=== PATIENT | male | born 1970 | race Caucasian/White ===

== ENCOUNTER 2020-05-22 12:04 | Emergency (ER) | payer BC, OTHER ==
[2020-05-22] MEDS ORDERED: Diphtheria,Pertussis(Acell),Tetanus Vaccine 0.5 ML Syringe IM ONE (12:26)
--- NOTE | 2020-05-22 13:08 | EDM.PDOC ---
ED HPI GENERAL MEDICAL PROBLEM - General Chief Complaint: Laceration Stated Complaint: CUT INDEX LT FINGER Time Seen by Provider: 05/22/20 12:16 Source of Information: Reports: Patient - History of Present Illness INITIAL COMMENTS - FREE TEXT/NARRATIVE: History of present illness: 49-year-old male presenting with left index finger laceration on the palmar surface occurring an hour and a half prior to arrival. The patient was using a knife at work and cut his finger. Bleeding is well controlled with a bandage that the patient placed and taped on his finger. He was at work and the wound did have some dirt nearby as well as some grease which the patient did attempt to wash off prior to arrival here. Tetanus is not up-to-date. Pain is minimal and well tolerated. The patient is right-handed, wound located left index finger Review of systems: As per history of present illness and below otherwise all systems reviewed and negative. Past medical history: As per history of present illness and as reviewed below otherwise noncontributory. Denies Surgical history: As per history of present illness and as reviewed below otherwise noncontributory. Multiple orthopedic surgeries Social history: No reported history of drug abuse. Daily tobacco. Daily 1 beer Family history: As per history of present illness and as reviewed below otherwise noncontributory. Physical exam: GEN: no acute distress, well appearing HEENT: Atraumatic, normocephalic, mucous membranes moist, Neck: supple, atraumatic. Lungs: No respiratory distress. Heart: RRR Extremities: Left index finger laceration, 2 cm over the palmar surface, actively bleeding once patient's own dressing was removed. Range of motion of the index finger with no signs of tendon laceration or weakness. Distally neurovascularly intact. Neuro: Awake, alert, oriented. Neuro Exam nonfocal. Skin: warm, dry, no lesions 2 cm laceration palmar surface of the left hand Diagnostics: Therapeutics: Tetanus MDM: Impression: Plan: Definitive disposition and diagnosis as appropriate pending reevaluation and review of above. - Related Data Allergies Allergy/AdvReac Type Severity Reaction Status Date / Time No Known Allergies Allergy Verified 05/22/20 12:20 Home Meds: Home Meds lisinopriL [Lisinopril] 40 mg PO DAILY 05/22/20 [History] Past Medical History Cardiovascular History: Reports: Hypertension - Infectious Disease History Infectious Disease History: Reports: None Social & Family History - Family History Family Medical History: Noncontributory - Tobacco Use Smoking Status *Q: Current Every Day Smoker Years of Tobacco use: 15 Packs/Tins Daily: 0.5 - Caffeine Use Caffeine Use: Reports: None - Recreational Drug Use Recreational Drug Use: No ED ROS GENERAL - Review of Systems Review Of Systems: See Below (See HPI) ED EXAM, SKIN/RASH Exam: See Below (See HPI) Course - Vital Signs Text/Narrative:: Left index finger laceration, repaired by ZACH Isaac. Patient tolerated well. Wound was mildly contaminated but cleaned well. No bone exposure or limited range of motion. No tendon injury. Tetanus updated here. Last Recorded V/S: Last Vital Signs Temp 97.9 F 05/22/20 14:37 Pulse 87 05/22/20 14:37 Resp 20 05/22/20 14:37 BP 167/109 H 05/22/20 14:37 Pulse Ox 97 05/22/20 14:37 - Orders/Labs/Meds Meds: Medications Discontinued Medications Generic Name Dose Route Start Last Admin Trade Name Carlos PRN Reason Stop Dose Admin Diphtheria/Tetanus/Acell Pertussis 0.5 ml 05/22/20 12:26 05/22/20 13:35 Adacel IM 05/22/20 12:27 0.5 ml .ONCE ONE Administration Lidocaine HCl 10 ml 05/22/20 13:17 05/22/20 13:43 Xylocaine 1% INJECT 05/22/20 13:18 10 ml ONETIME ONE Administration Lidocaine HCl Confirm 05/22/20 13:24 05/22/20 13:36 Xylocaine-Mpf 1% Administered 05/22/20 13:25 Not Given Dose 10 ml .ROUTE .STK-MED ONE - Re-Assessments/Exams Free Text/Narrative Re-Assessment/Exam: 05/22/20 14:03 Patient tolerated laceration repair well. No acute distress. Stable for discharge. Departure - Departure Time of Disposition: 14:04 Disposition: Home, Self-Care 01 Clinical Impression: Finger laceration Qualifiers: Encounter type: initial encounter Finger: index finger Damage to nail status: without damage Foreign body presence: without foreign body Laterality: left Qualified Code(s): S61.211A - Laceration without foreign body of left index finger without damage to nail, initial encounter - Discharge Information Instructions: VIS, DTaP (Diphtheria, Tetanus, Pertussis) Vaccine - CDC (12/19/2019), Wound Care, Adult, Sutured Wound Care, Laceration Care, Adult, [id number], Sutures, [place], or Adhesive Wound Closure, [id number], Sutured Wound Care, [id number] Referrals: Kirit Stewart MD [Primary Care Provider] - Forms: ED Department Discharge Additional Instructions: Follow-up with your primary care physician or the emergency department for suture removal in 7 to 10 days. Return to the ER if you develop any swelling, redness, discharge from the laceration or any other concerning symptoms. Keep the wound clean and dry for 24 hours, to keep the wounds clean until sutures are removed. The following information is given to patients seen in the emergency department who are being discharged to home. This information is to outline your options for follow-up care. We provide all patients seen in our emergency department with a follow-up referral. The need for follow-up, as well as the timing and circumstances, are variable depending upon the specifics of your emergency department visit. If you don't have a primary care physician on staff, we will provide you with a referral. We always advise you to contact your personal physician following an emergency department visit to inform them of the circumstance of the visit and for follow-up with them and/or the need for any referrals to a consulting specialist. The emergency department will also refer you to a specialist when appropriate. This referral assures that you have the opportunity for follow-up care with a specialist. All of these measure are taken in an effort to provide you with optimal care, which includes your follow-up. Under all circumstances we always encourage you to contact your private physician who remains a resource for coordinating your care. When calling for follow-up care, please make the office aware that this follow-up is from your recent emergency room visit. If for any reason you are refused follow-up, please contact the [facility] Emergency Department at and asked to speak to the emergency department charge nurse. Sepsis Event Note (ED) - Evaluation Sepsis Screening Result: No Definite Risk
[2020-05-22] MEDS ORDERED: Lidocaine 1% 10 ML MDV INJECT ONE (13:17)
--- NOTE | 2020-05-22 13:58 | PCM.PRNOTE ---
ED LACERATION PROCEDURES - Laceration/Wound Repair Left Distal Digit - 2nd (Index) Lac/wound length in cm: 2.5 Appearance: Subcutaneous, Linear, Mildly Contaminated Distal NVT: Neuro & Vascular Intact, No Tendon Injury Anesthetic Type: Local Local Anesthesia - Lidocaine (Xylocaine): 1% Plain Local Anesthetic Volume: 3cc Skin Prep: Chlorhexidine (Hibiciens), Providone-Iodine (Betadine), Saline Saline irrigation (cc's): 150 Exploration/Debridement/Repair: Wound Explored, In a Bloodless Field, Explored to Base, No Foreign Material Found Closed with: Sutures Suture Size: 4-0 # of Sutures: 5 Suture Type: Silk Drain Placement: No Sterile Dressing Applied: Nurse Tetanus Status Addressed: Yes Complications: No
== END 2020-05-22 14:45 | disposition home or self-care (01) ==
LOC: MW.ED 12:04
DX: S61.211A Laceration without foreign body of left index finger without damage to nail, initial encounter (principal); I10 Essential (primary) hypertension; F17.210 Nicotine dependence, cigarettes, uncomplicated; W26.0XXA Contact with knife, initial encounter; Y99.0 Civilian activity done for income or pay
CPT/HCPCS: 12001; 90471; 90715; 99282; J2001

== ENCOUNTER 2020-05-30 11:46 | Emergency (ER) | payer OTHER | END 2020-05-30 12:00 | disposition home or self-care (01) | LOC: MW.ED 11:46 | DX: S61.211D Laceration without foreign body of left index finger without damage to nail, subsequent encounter (principal); S61.412D Laceration without foreign body of left hand, subsequent encounter; I10 Essential (primary) hypertension; F17.210 Nicotine dependence, cigarettes, uncomplicated; Z79.899 Other long term (current) drug therapy; W26.0XXD Contact with knife, subsequent encounter; Y92.89 Other specified places as the place of occurrence of the external cause; Y99.0 Civilian activity done for income or pay | CPT/HCPCS: 99281 ==

== ENCOUNTER 2021-02-25 10:46 | Day surgery (SDC) | payer OTHER ==
[~2021-02-25 10:46] MED LIST: Lidocaine 2% 5 ML SDV ONE; Midazolam 1 MG/ML 2 ML SDV ONE; Propofol 200 MG/20 ML SDV ONE; fentaNYL 100 MCG/2 ML SDV ONE
[2021-02-25] MEDS ORDERED: Lactated Ringers 1,000 ML IV SCH (11:30)
[2021-02-25] MEDS ORDERED: Albuterol 0.083% 2.5 MG/3 ML Neb Soln NEB PRN (11:54)
[2021-02-25] MEDS ORDERED: Ondansetron 4 MG/2 ML SDV IVPUSH PRN (11:54)
[2021-02-25] MEDS ORDERED: Metoclopramide 10 MG/2 ML SDV IVPUSH PRN (11:54)
--- NOTE | 2021-02-25 11:54 | PCM.PREANE ---
Preanesthetic Assessment - Anesthesia/Transfusion/Family Hx Anesthesia History: Prior Anesthesia Without Reaction Transfusion History: No Prior Transfusion(s) - Review of Systems General: No Symptoms Pulmonary: No Symptoms Cardiovascular: No Symptoms Gastrointestinal: No Symptoms Neurological: No Symptoms Other: Reports: None - Physical Assessment NPO Status Date: 02/25/21 NPO Status Time: 00:00 Vital Signs: Last Vital Signs Temp 97.0 F 02/25/21 11:00 Pulse 104 H 02/25/21 11:00 Resp 18 02/25/21 11:00 BP 150/111 H 02/25/21 11:10 Pulse Ox 96 02/25/21 11:00 Height: 6 ft 1 in Weight: 249 lb ASA Class: 3 Mental Status: Alert & Oriented x3 Airway Class: Mallampati = 2 Dentition: Reports: Normal Dentition ROM/Head Extension: Full Lungs: Clear to Auscultation, Normal Respiratory Effort Cardiovascular: Regular Rate, Regular Rhythm - Lab Values: Laboratory Last Values Lipase 119 U/L ([id number]) 02/24/21 09:55 - Allergies Allergies/Adverse Reactions: Allergies Allergy/AdvReac Type Severity Reaction Status Date / Time No Known Allergies Allergy Verified 02/25/21 07:30 - Acknowledgements Anesthesia Type Planned: General Anesthesia Pt an Appropriate Candidate for the Planned Anesthesia: Yes Alternatives and Risks of Anesthesia Discussed w Pt/Guardian: Yes Pt/Guardian Understands and Agrees with Anesthesia Plan: Yes PreAnesthesia Questionnaire HEENT History: Reports: Other (See Below) Other HEENT History: wears glasses Cardiovascular History: Reports: Hypertension Other Cardiovascular History: HTN in the past, has lost weight Respiratory History: Reports: Other (See Below) Other Respiratory History: sleep apnea in the past, states has lost weight and no longer needs CPAP Gastrointestinal History: Reports: GERD, Helicobacter Pylori Genitourinary History: Reports: None Musculoskeletal History: Reports: Fracture Other Musculoskeletal History: fx both arms, fingers & wrist Neurological History: Reports: Concussion Psychiatric History: Reports: None Endocrine/Metabolic History: Reports: Obesity/BMI 30+ Hematologic History: Reports: None Immunologic History: Reports: None Oncologic (Cancer) History: Reports: None Dermatologic History: Reports: None - Infectious Disease History Infectious Disease History: Reports: None - Past Surgical History Head Surgeries/Procedures: Reports: None HEENT Surgical History: Reports: None Cardiovascular Surgical History: Reports: None Respiratory Surgical History: Reports: None GI Surgical History: Reports: EGD Other GI Surgeries/Procedures: EGD on 02/25/21 Male Surgical History: Reports: None Endocrine Surgical History: Reports: None Neurological Surgical History: Reports: None Musculoskeletal Surgical History: Reports: Arthroscopic Knee, ORIF, Shoulder Surgery Other Musculoskeletal Surgeries/Procedures:: ORIF both arms, RTCR left shoulder, surgery for fx left ring finger, left knee arthroscopy Oncologic Surgical History: Reports: None Dermatological Surgical History: Reports: None - SUBSTANCE USE Tobacco Use Status *Q: Light Tobacco User Tobacco Use Within Last Twelve Months: Cigarettes, Snuff/Dip - HOME MEDS Home Medications: Home Meds Bismuth Ssal/Metronid/Tetracyc [Helidac Therapy Pack] 1 tab PO ASDIRECTED 02/24/21 [History] Furosemide 20 mg PO DAILY 02/24/21 [History] Omeprazole 40 mg PO DAILY 02/24/21 [History] - CURRENT (IN HOUSE) MEDS Current Meds: Current Medications Lactated Ringer's (Ringers, Lactated) 1,000 mls @ 125 mls/hr IV ASDIRECTED ALEXA Discontinued Medications Fentanyl (Fentanyl 100 Mcg/2 Ml Sdv) Confirm Administered Dose 100 mcg .ROUTE .STK-MED ONE Stop: 02/25/21 07:03 Lidocaine (Lidocaine 2% 5 Ml Sdv) Confirm Administered Dose 5 ml .ROUTE .STK-MED ONE Stop: 02/25/21 07:03 Midazolam HCl (Midazolam 1 Mg/Ml 2 Ml Sdv) Confirm Administered Dose 2 mg .ROUTE .STK-MED ONE Stop: 02/25/21 07:03 Propofol (Propofol 200 Mg/20 Ml Sdv) Confirm Administered Dose 200 mg .ROUTE .STK-MED ONE Stop: 02/25/21 07:03
--- NOTE | 2021-02-25 13:16 | PCM.POSTAN ---
POST ANESTHESIA ASSESSMENT - MENTAL STATUS Mental Status: Alert, Oriented - VITAL SIGNS Vital Signs: Last Vital Signs Temp 97.0 F 02/25/21 11:00 Pulse 86 02/25/21 13:02 Resp 19 02/25/21 13:02 BP 121/83 02/25/21 13:02 Pulse Ox 97 02/25/21 13:02 - RESPIRATORY Respiratory Status: Respiratory Rate WNL, Airway Patent, O2 Saturation Stable - CARDIOVASCULAR CV Status: Pulse Rate WNL, Blood Pressure Stable - GASTROINTESTINAL GI Status: No Symptoms - POST OP HYDRATION Hydration Status: Adequate & Stable
--- NOTE | 2021-02-25 13:16 | PCM48HPAN ---
Post Anesthesia Note - EVALUATION WITHIN 48HRS OF ANESTHETIC Vital Signs in Normal Range: Yes Patient Participated in Evaluation: Yes Respiratory Function Stable: Yes Airway Patent: Yes Cardiovascular Function Stable: Yes Hydration Status Stable: Yes Pain Control Satisfactory: Yes Nausea and Vomiting Control Satisfactory: Yes Mental Status Recovered: Yes Vital Signs: Last Vital Signs Temp 97.0 F 02/25/21 11:00 Pulse 86 02/25/21 13:02 Resp 19 02/25/21 13:02 BP 121/83 02/25/21 13:02 Pulse Ox 97 02/25/21 13:02
--- NOTE | 2021-02-25 14:07 | PCM.OPNOTE ---
- General Post-Op/Procedure Note Date of Surgery/Procedure: 02/25/21 Operative Procedure(s): EGD with biopsies Findings: Gastritis Irregular GE junction dictation number [id number] Pre Op Diagnosis: Abdominal pain, GERD Post-Op Diagnosis: Gastritis. Irregular GE junction Primary Surgeon: Rom Villalba Pathology: EGD biopsies Complications: None Condition: Good Free Text/Narrative:: Intake & Output 02/24/21 02/25/21 02/25/21 22:59 06:59 14:59 Intake Total 550 Balance 550
--- NOTE | 2021-02-25 20:49 | OR ---
SURGEON: MEGAN BARKER MD DATE OF PROCEDURE: 02/25/2021 PREOPERATIVE DIAGNOSES: 1. Abdominal pain. 2. Gastroesophageal reflux disease. 3. Loose stools. POSTOPERATIVE DIAGNOSES: 1. Gastritis. 2. Irregular gastroesophageal junction. PROCEDURE PERFORMED: Esophagogastroduodenoscopy with biopsies. EXTENT OF EGD: To second part of duodenum. LIMITATIONS: None. REASON FOR PROCEDURE: The patient is a pleasant 50-year-old gentleman who for the past four months has been having left upper abdominal pain. It has been related to spicy food. It seems to come and go at random times but is occasionally associated with eating. The patient did have a positive H pylori and is under active treatment for that. The patient also has change in bowel habits. He says he has had some urgency, has to go to the bathroom right way and some multiple loose bowel movements daily. Also, he is having some swelling and edema. I did go over with the patient again risks, goals, and alternatives to EGD. All of the patient's questions were answered. PROCEDURE IN DETAIL: Physical exam was performed. The major risks and benefits associated with the procedure were explained to the patient in detail. The patient verbalized understanding and was in agreement with the same. The patient was then connected to the appropriate monitoring devices, and IV was started. EKG, pulse oximetry, blood pressure, and capnography were monitored throughout the entire procedure. Oxygen and sedation were provided by the anesthesiologist. Sedation was began. After adequate sedation was achieved, upper endoscope was advanced under direct visualization in the upper GI tract. The anatomy of mucosa of the esophagus, GE junction, stomach, and at least the second part of duodenum were inspected. Duodenum did appear normal. Did do several biopsies of duodenum because of question of possible celiac disease. The scope was brought back to the stomach. Both retrograde and antegrade views of the stomach were done. The patient did have some mild gastritis. Did do biopsies of the antrum. Scope was brought to the GE junction. GE junction was approximately 42 cm from the incisors. The GE junction did have two salmon-colored projections about 1 cm. One did have some islands of normal cell in it. Did do four- quadrant biopsies throughout the GE junction. Scope was brought back to the stomach. Stomach was deinsufflated. Scope was brought up to the GE junction. There was good hemostasis. Scope was brought through the esophagus. Esophagus did appear normal. Scope was completely removed, and the procedure was terminated. ENDOSCOPIC DIAGNOSES: 1. Gastritis. 2. Irregular gastroesophageal junction. RECOMMENDATIONS: The patient will follow up in clinic to go over his pathology. The patient is also scheduled to undergo laparoscopic cholecystectomy. We did discuss the cholecystectomy. The patient has been now having right-sided pain. He does have a contracted gallbladder on CT scan and ultrasound. No gallstones zone. continue with a laparoscopic cholecystectomy. JUNE / JULIAN /[id number]
== END 2021-02-25 14:12 | disposition home or self-care (01) ==
LOC: MW.SDS 10:46
PROVIDERS: ATTEND Surgery
DX: K29.50 Unspecified chronic gastritis without bleeding (principal); K21.9 Gastro-esophageal reflux disease without esophagitis; K22.8 Other specified diseases of esophagus; N17.9 Acute kidney failure, unspecified; E66.9 Obesity, unspecified; I10 Essential (primary) hypertension; Z79.899 Other long term (current) drug therapy; Z98.890 Other specified postprocedural states; Z87.891 Personal history of nicotine dependence; Z68.32 Body mass index [BMI] 32.0-32.9, adult
CPT/HCPCS: 36415; 43239; 83690; 88305; 88342; J2250; J2704; J3010; J7120; 00731

== ENCOUNTER 2021-02-27 06:31 | Day surgery (SDC) | payer OTHER ==
[~2021-02-27 06:31] MED LIST changes: -Lidocaine 2% 5 ML SDV ONE; -Midazolam 1 MG/ML 2 ML SDV ONE; -Propofol 200 MG/20 ML SDV ONE; +cefOXitin 2 GM in Premix Bag 1 BAG IV ONE; -fentaNYL 100 MCG/2 ML SDV ONE
[2021-02-27] MEDS ORDERED: cefOXitin 1 GM Vial ONE (06:45)
[2021-02-27] MEDS ORDERED: Sodium Chloride 0.9% 20 ML ONE (06:45)
[2021-02-27] MEDS ORDERED: Lactated Ringers 1,000 ML IV SCH (06:45)
[2021-02-27] MEDS ORDERED: Propofol 200 MG/20 ML SDV ONE (06:45)
[2021-02-27] MEDS ORDERED: fentaNYL 250 MCG/5 ML SDV ONE (06:45)
[2021-02-27] MEDS ORDERED: Succinylcholine/Sod PF 100 MG/5 ML SYRINGE IV ONE (06:46)
[2021-02-27] MEDS ORDERED: Dexamethasone 4 MG/ML 5 ML MDV ONE (06:46)
[2021-02-27] MEDS ORDERED: Rocuronium Bromide 50 MG/5 ML Syringe ONE (06:46)
[2021-02-27] MEDS ORDERED: Midazolam 1 MG/ML 2 ML SDV ONE (06:46)
[2021-02-27] MEDS ORDERED: Ondansetron 4 MG/2 ML SDV ONE (06:46)
[2021-02-27] MEDS ORDERED: HYDROmorphone 2 MG/ML Syringe IVPUSH PRN (06:58)
[2021-02-27] MEDS ORDERED: Albuterol 0.083% 2.5 MG/3 ML Neb Soln NEB PRN (06:58)
[2021-02-27] MEDS ORDERED: Metoclopramide 10 MG/2 ML SDV IVPUSH PRN (06:58)
[2021-02-27] MEDS ORDERED: Ondansetron 4 MG/2 ML SDV IVPUSH PRN (06:58)
[2021-02-27] MEDS ORDERED: Naloxone 0.4 MG/ML Syringe IVPUSH PRN (06:58)
--- NOTE | 2021-02-27 07:03 | PCM.PREANE ---
Preanesthetic Assessment - Anesthesia/Transfusion/Family Hx Anesthesia History: Prior Anesthesia Without Reaction Family History of Anesthesia Reaction: No Transfusion History: No Prior Transfusion(s) - Review of Systems General: No Symptoms, Weakness, Fatigue Pulmonary: No Symptoms, Cough Cardiovascular: No Symptoms, Dyspnea on Exertion, Edema Gastrointestinal: No Symptoms, Abdominal Pain, Decreased Appetite, Diarrhea, Nausea Neurological: No Symptoms, Weakness Other: Reports: None, Liver Problems, Depression - Physical Assessment NPO Status Date: 02/27/21 NPO Status Time: 00:00 Height: 6 ft 1 in Weight: 248 lb ASA Class: 3 Mental Status: Alert & Oriented x3 Airway Class: Mallampati = 2 Dentition: Reports: Normal Dentition Thyro-Mental Finger Breadths: 5 Mouth Opening Finger Breadths: 5 ROM/Head Extension: Full Lungs: Clear to Auscultation, Normal Respiratory Effort Cardiovascular: Regular Rate, Regular Rhythm - Allergies Allergies/Adverse Reactions: Allergies Allergy/AdvReac Type Severity Reaction Status Date / Time No Known Allergies Allergy Verified 02/27/21 06:46 - Acknowledgements Anesthesia Type Planned: General Anesthesia Pt an Appropriate Candidate for the Planned Anesthesia: Yes Alternatives and Risks of Anesthesia Discussed w Pt/Guardian: Yes Pt/Guardian Understands and Agrees with Anesthesia Plan: Yes PreAnesthesia Questionnaire HEENT History: Reports: Other (See Below) Other HEENT History: wears glasses Cardiovascular History: Reports: Hypertension Other Cardiovascular History: HTN in the past, has lost weight Respiratory History: Reports: Other (See Below) Other Respiratory History: sleep apnea in the past, states has lost weight and no longer needs CPAP Gastrointestinal History: Reports: GERD, Helicobacter Pylori Genitourinary History: Reports: None Musculoskeletal History: Reports: Fracture Other Musculoskeletal History: fx both arms, fingers & wrist Neurological History: Reports: Concussion Psychiatric History: Reports: None Endocrine/Metabolic History: Reports: Obesity/BMI 30+ Hematologic History: Reports: None Immunologic History: Reports: None Oncologic (Cancer) History: Reports: None Dermatologic History: Reports: None - Infectious Disease History Infectious Disease History: Reports: None - Past Surgical History Head Surgeries/Procedures: Reports: None HEENT Surgical History: Reports: None Cardiovascular Surgical History: Reports: None Respiratory Surgical History: Reports: None GI Surgical History: Reports: EGD Other GI Surgeries/Procedures: EGD on 02/25/21 Male Surgical History: Reports: None Endocrine Surgical History: Reports: None Neurological Surgical History: Reports: None Musculoskeletal Surgical History: Reports: Arthroscopic Knee, ORIF, Shoulder Surgery Other Musculoskeletal Surgeries/Procedures:: ORIF both arms, RTCR left shoulder, surgery for fx left ring finger, left knee arthroscopy Oncologic Surgical History: Reports: None Dermatological Surgical History: Reports: None - SUBSTANCE USE Tobacco Use Status *Q: Former Tobacco User Tobacco Use Within Last Twelve Months: Cigarettes - HOME MEDS Home Medications: Home Meds Bismuth Ssal/Metronid/Tetracyc [Helidac Therapy Pack] 1 tab PO ASDIRECTED 02/24/21 [History] Furosemide 20 mg PO DAILY 02/24/21 [History] Omeprazole 40 mg PO DAILY 02/24/21 [History] - CURRENT (IN HOUSE) MEDS Current Meds: Current Medications Lactated Ringer's (Ringers, Lactated) 1,000 mls @ 125 mls/hr IV ASDIRECTED ALEXA Discontinued Medications Cefoxitin Sodium (Cefoxitin 1 Gm Vial) Confirm Administered Dose 1 gm .ROUTE .STK-MED ONE Stop: 02/27/21 06:46 Dexamethasone (Dexamethasone 4 Mg/Ml 5 Ml Mdv) Confirm Administered Dose 20 mg .ROUTE .STK-MED ONE Stop: 02/27/21 06:47 Fentanyl (Fentanyl 250 Mcg/5 Ml Sdv) Confirm Administered Dose 250 mcg .ROUTE .STK-MED ONE Stop: 02/27/21 06:46 Cefoxitin Sodium 2 gm/ Premix 50 mls @ 100 mls/hr IV ONETIME ONE Stop: 02/26/21 15:08 Cefoxitin Sodium (Mefoxin In Dextrose,Iso-Osm 1 Gm/50 Ml) Confirm Administered Dose 50 mls @ as directed .ROUTE .STK-MED ONE Stop: 02/27/21 06:45 Sodium Chloride (Normal Saline) Confirm Administered Dose 20 mls @ as directed .ROUTE .STK-MED ONE Stop: 02/27/21 06:46 Lidocaine HCl (Lidocaine 1% 5 Ml Sdv) Confirm Administered Dose 5 ml .ROUTE .STK-MED ONE Stop: 02/27/21 06:47 Midazolam HCl (Midazolam 1 Mg/Ml 2 Ml Sdv) Confirm Administered Dose 2 mg .ROUTE .STK-MED ONE Stop: 02/27/21 06:47 Ondansetron HCl (Ondansetron 4 Mg/2 Ml Sdv) Confirm Administered Dose 4 mg .ROUTE .STK-MED ONE Stop: 02/27/21 06:47 Propofol (Propofol 200 Mg/20 Ml Sdv) Confirm Administered Dose 200 mg .ROUTE .STK-MED ONE Stop: 02/27/21 06:46 Rocuronium [place] (Rocuronium [place] 50 Mg/5 Ml Syringe) Confirm Administered Dose 50 mg .ROUTE .STK-MED ONE Stop: 02/27/21 06:47
[2021-02-27] MEDS ORDERED: Bupivacaine 25%/EPINEPHrine/PF 30 ML ONE (07:28)
[2021-02-27] MEDS ORDERED: Octyl 2-Cyanoacrylate 1 Tube ONE ×2 (07:28→09:46)
[2021-02-27] MEDS ORDERED: Sugammadex Sodium 200 MG/2 ML VIAL ONE ×2 (07:44→07:45)
[2021-02-27] MEDS ORDERED: Furosemide 40 MG/4 ML VIAL ONE (08:23)
[2021-02-27] MEDS ORDERED: Phenylephrine 1% 10 MG/ML SDV ONE (08:36)
--- NOTE | 2021-02-27 09:59 | PCM.OPNOTE ---
- General Post-Op/Procedure Note Date of Surgery/Procedure: 02/27/21 Operative Procedure(s): Laparoscopic cholecystectomy Findings: White, slightly edematous gallbladder Small amount of ascites dictation number [id number] Pre Op Diagnosis: Chronic cholecystitis Post-Op Diagnosis: chronic cholecystitis Primary Surgeon: Rom Villalba Pathology: gallbladder EBL in mLs: 5 Complications: None Condition: Good
--- NOTE | 2021-02-27 10:05 | PCM.POSTAN ---
POST ANESTHESIA ASSESSMENT - MENTAL STATUS Mental Status: Alert, Oriented - VITAL SIGNS Vital Signs: Last Vital Signs Temp 97.7 F 02/27/21 09:52 Pulse 77 02/27/21 09:52 Resp 16 02/27/21 09:52 BP 116/81 02/27/21 09:52 Pulse Ox 90 L 02/27/21 09:52 - RESPIRATORY Respiratory Status: Respiratory Rate WNL, Airway Patent, O2 Saturation Stable - CARDIOVASCULAR CV Status: Pulse Rate WNL, Blood Pressure Stable - GASTROINTESTINAL GI Status: No Symptoms - POST OP HYDRATION Hydration Status: Adequate & Stable
[2021-02-27] MEDS: fentaNYL 100 MCG/2 ML SDV IVPUSH PRN ×2 (10:25→10:32)
[2021-02-27] MEDS ORDERED: Acetaminophen 1,000 MG in Premix Bag 1 BAG IV ONE (10:45)
[2021-02-27] MEDS ORDERED: Ketorolac 30 MG/ML SDV IVPUSH ONE (10:46)
[2021-02-27] MEDS ORDERED: Ketorolac 30 MG/ML SDV ONE (10:51)
--- NOTE | 2021-02-27 10:54 | PCM48HPAN ---
Post Anesthesia Note - EVALUATION WITHIN 48HRS OF ANESTHETIC Vital Signs in Normal Range: Yes Patient Participated in Evaluation: Yes Respiratory Function Stable: Yes Airway Patent: Yes Cardiovascular Function Stable: Yes Hydration Status Stable: Yes Pain Control Satisfactory: Yes Nausea and Vomiting Control Satisfactory: Yes Mental Status Recovered: Yes Vital Signs: Last Vital Signs Temp 97.7 F 02/27/21 09:52 Pulse 83 02/27/21 10:48 Resp 21 H 02/27/21 10:48 BP 137/111 H 02/27/21 10:48 Pulse Ox 98 02/27/21 10:48
--- NOTE | 2021-02-27 12:36 | OR ---
SURGEON: MEGAN BARKER MD DATE OF PROCEDURE: 02/27/2021 PREOPERATIVE DIAGNOSIS: Chronic cholecystitis. POSTOPERATIVE DIAGNOSIS: Chronic cholecystitis. PROCEDURE PERFORMED: Laparoscopic cholecystectomy. ANESTHESIA: General. ESTIMATED BLOOD LOSS: 5. SPECIMEN: Gallbladder. FINDINGS: 1. Slightly edematous white gallbladder. 2. Small amount of ascites. REASON FOR PROCEDURE: The patient is a pleasant 50-year-old gentleman, who says for the past 4 months has been having abdominal pain. Initially, this seems to be on the left side, but lately he says more it is more on the right upper quadrant along with a lot of loose stools. The patient did have an ultrasound that showed thickened gallbladder wall. The CT scan that showed some small amount of ascites and a contracted gallbladder. LFTs have been normal. Did go over with the patient risks, goals, and alternatives of the procedure. Risks include, but not limited to, bleeding, infection, bile leak, retained gallstones, need to convert to open, injury to common bile duct or duodenum or other nearby structures. Also, this could be something else causing all the symptoms other than the gallbladder. The patient understands and wishes to proceed with the surgery. PROCEDURE IN DETAIL: The patient was brought back to the OR. He was prepped and draped in usual sterile fashion. SCDs placed. Patterson catheter placed. Anesthesia provided by the anesthesia team. Preoperative antibiotics were given. After time-out was performed, an infraumbilical incision was made. This was carried down to the fascia. The fascia was then entered using an open Tiera technique. Two, 0-0 Vicryls were placed in the fascia to help with closure. A Tiera trocar was placed. Insufflation was began and pneumoperitoneum was established. . Now, 3 more 5mm trocars were placed, one in the mid epigastric, one in the right upper quadrant, one in the right lower abdomen under direct visualization. The patient had a small amount of ascites. This was suctioned out. Abdomen was inspected. Liver did look a little bit enlarged. The gallbladder was identified. It was slightly edematous and white. Fundus of gallbladder was elevated. Now, attention brought to the infundibulum. This area was cleared with gentle dissected mainly with blunt dissection to reveal the cystic duct and the cystic artery. I did dissect the gallbladder up about a fourth [address]. No other tubular structures were seen. The patient did have indocyanine green, which did clearly show the cystic duct. He was injected again, which showed light up of the cystic artery. Now that everything was identified, the cystic duct with the cystic artery were clipped and transected. The gallbladder was taken off the liver with the Harmonic scalpel. There was good hemostasis of the liver bed. The gallbladder was removed in Endocatch bag. Now, attention brought back to the operative site. There was good hemostasis. Clips appeared intact and in good position. I did do some minimal suction irrigation. Again, examined the abdomen and suctioned out any remaining fluid that was seen. Now, the 5 mm trocars were removed under direct visualization and the pneumoperitoneum was released. The infraumbilical incision was then closed with a [id number] 0 Vicryl. The stay sutures previously placed were also sutured closed. Now, all the port sites were again injected with local and skin was closed with 4-0 Monocryl and Dermabond. At the end of the case, sponge and needle counts were correct. The patient was transferred to the recovery room in stable condition. JUNE JORDAN /[id number] ELÍAS
== END 2021-02-27 13:05 | disposition home or self-care (01) ==
LOC: MW.SDS 06:31
PROVIDERS: ATTEND Surgery
DX: K81.1 Chronic cholecystitis (principal); K21.9 Gastro-esophageal reflux disease without esophagitis; N17.9 Acute kidney failure, unspecified; E88.09 Other disorders of plasma-protein metabolism, not elsewhere classified; A04.8 Other specified bacterial intestinal infections; E66.9 Obesity, unspecified; Z98.890 Other specified postprocedural states; Z68.32 Body mass index [BMI] 32.0-32.9, adult; Z79.899 Other long term (current) drug therapy; Z87.891 Personal history of nicotine dependence
CPT/HCPCS: 47562; A9270; J0131; J0330; J0694; J1100; J1885; J1940; J2250; J2370; J2704; J3010; J3490; J7120; 00790; 88304; J2405

== ENCOUNTER 2021-04-01 13:39 | Emergency (ER) | payer OTHER ==
[2021-04-01] MEDS ORDERED: Sodium Chloride 0.9% 10 ML Syringe FLUSH PRN (14:35)
[2021-04-01] MEDS ORDERED: Sodium Chloride 0.9% 2.5 ML Syringe FLUSH PRN (14:35)
--- NOTE | 2021-04-01 14:39 | EDM.PDOC ---
ED HPI GENERAL MEDICAL PROBLEM - General Chief Complaint: Lower Extremity Injury/Pain Stated Complaint: SWOLLEN LEGS Time Seen by Provider: 04/01/21 13:58 - History of Present Illness INITIAL COMMENTS - FREE TEXT/NARRATIVE: History of present illness: [] Patient reports he is swelling of his legs is painful. It is more painful when he stands up. He also has shortness of breath with exertion and when he lays flat. The patient has the symptoms getting worse for a week. He did have some swelling since his gallbladder surgery a couple of months ago and went to his doctor at the beginning of February where he was started on Lasix 20 mg daily. The swelling is dramatically worse the last 7 days. Patient is trying to quit chewing tobacco. He occasionally drinks but not much. He does not smoke. Review of systems: As per history of present illness and below otherwise all systems reviewed and negative. Past medical history: As per history of present illness and as reviewed below otherwise noncontributory. Surgical history: As per history of present illness and as reviewed below otherwise noncontributory. Social history: No reported history of drug or alcohol abuse. Family history: As per history of present illness and as reviewed below otherwise noncontributory. Physical exam: Constitutional - well developed, well-nourished and in no acute distress HEENT - normocephalic, no evidence of trauma - external nose and mouth normal - no mass in neck and no JVD - mucosae moist EYES - full EOM, PERRL, no icterus - no evidence of inflammation, injection, or drainage Respiratory - no respiratory distress, equal bilateral expansion, lungs clear to auscultation and no abnormal lung sounds Cardiovascular - Regular Rhythm with S1 and S2 appreciated and no murmur, gallop or rub. GI - abdomen distended without organomegaly- normal bowel sounds - no guard or rebound Musculoskeletal no gross deformity of long bones or joints - no tenderness but has 2+ pitting edema both lower extremities. Neurologic - Alert and oriented times four - CN II-XII grossly intact - motor sensory and coordination symmetrically normal Psychiatric - appropriate mood and affect with normal thought content Hematologic - No petechiae or purpura - mucosa appropriate color and sclera not pale - normal nail bed color and refill Integument - no rash or evidence of trauma - normal turgor Diagnostics: [] Therapeutics: [] Impression: [] Plan: [] Definitive disposition and diagnosis as appropriate pending reevaluation and review of above. lower legs Pain Score (Numeric/FACES): 5 - Related Data Allergies Allergy/AdvReac Type Severity Reaction Status Date / Time No Known Allergies Allergy Verified 04/01/21 13:57 Home Meds: Home Meds Bismuth Ssal/Metronid/Tetracyc [Helidac Therapy Pack] 1 tab PO ASDIRECTED 02/24/21 [History] Furosemide 20 mg PO DAILY 02/24/21 [History] Omeprazole 40 mg PO DAILY 02/24/21 [History] Hydrocodone/Acetaminophen [Hydrocodone-Acetamin 5-325 mg] 1 - 2 each PO Q6HR PRN #25 tab 02/27/21 [Rx] Furosemide [Lasix] 40 mg PO DAILY #60 tab 04/01/21 [Rx] Potassium Chloride 20 meq PO DAILY #60 tablet.er 04/01/21 [Rx] Past Medical History HEENT History: Reports: Other (See Below) Other HEENT History: wears glasses Cardiovascular History: Reports: Hypertension Other Cardiovascular History: HTN in the past, has lost weight Respiratory History: Reports: Other (See Below) Other Respiratory History: sleep apnea in the past, states has lost weight and no longer needs CPAP Gastrointestinal History: Reports: GERD, Helicobacter Pylori Genitourinary History: Reports: None Musculoskeletal History: Reports: Fracture Other Musculoskeletal History: fx both arms, fingers & wrist Neurological History: Reports: Concussion Psychiatric History: Reports: None Endocrine/Metabolic History: Reports: Obesity/BMI 30+ Hematologic History: Reports: None Immunologic History: Reports: None Oncologic (Cancer) History: Reports: None Dermatologic History: Reports: None - Infectious Disease History Infectious Disease History: Reports: None - Past Surgical History Head Surgeries/Procedures: Reports: None HEENT Surgical History: Reports: None Cardiovascular Surgical History: Reports: None Respiratory Surgical History: Reports: None GI Surgical History: Reports: Cholecystectomy, EGD Other GI Surgeries/Procedures: EGD on 02/25/21 Male Surgical History: Reports: None Endocrine Surgical History: Reports: None Neurological Surgical History: Reports: None Musculoskeletal Surgical History: Reports: Arthroscopic Knee, ORIF, Shoulder Surgery Other Musculoskeletal Surgeries/Procedures:: ORIF both arms, RTCR left shoulder, surgery for fx left ring finger, left knee arthroscopy Oncologic Surgical History: Reports: None Dermatological Surgical History: Reports: None Social & Family History - Family History Family Medical History: No Pertinent Family History - Caffeine Use Caffeine Use: Reports: None - Recreational Drug Use Recreational Drug Use: No Review of Systems - Review of Systems Review Of Systems: Comprehensive ROS is negative, except as noted in HPI. ED EXAM, GENERAL - Physical Exam Exam: See Below Free Text/Narrative:: Physical exam is in the HPI #1 Interpretation EKG Interpretation Comments: EKG sinus tachycardia heart rate 104 FL 143 QT duration 453 and axis -1 late transition R wave with ST and T abnormalities in the precordium impression no acute obvious injury no prior for comparison Course - Vital Signs Text/Narrative:: 16 oriented patient appears to be in CHF right-sided and left-sided. He has not had an echocardiogram. He has been on Lasix 20 a day for more than a month. Cardiology clinic was contacted and they said they can work a minute 115 tomorrow afternoon. In the meantime I will double his Lasix and add potassium. Last Recorded V/S: Last Vital Signs Temp 36.8 C 04/01/21 14:50 Pulse 82 04/01/21 16:07 Resp 18 04/01/21 16:07 BP 148/113 H 04/01/21 16:07 Pulse Ox 98 04/01/21 16:07 - Orders/Labs/Meds Orders: Active Orders 24 hr Category Date Time Status EKG 12 Lead [EKG Documentation Completion] [RC] STAT Care 04/01/21 14:36 Active UA W/JODI RFLX IF INDICATED [URIN] Stat Lab 04/01/21 14:35 Ordered Sodium Chloride 0.9% [Saline Flush] Med 04/01/21 14:35 Active 10 ml FLUSH ASDIRECTED PRN Sodium Chloride 0.9% [Saline Flush] Med 04/01/21 14:35 Active 2.5 ml FLUSH ASDIRECTED PRN Saline Lock Insert [OM.PC] Stat Oth 04/01/21 14:35 Ordered Medication Orders Sodium Chloride (Sodium Chloride 0.9% 10 Ml Syringe) 10 ml FLUSH ASDIRECTED PRN PRN Reason: Keep Vein Open Last Admin: 04/01/21 15:33 Dose: 10 ml Documented by: RASHID Sodium Chloride (Sodium Chloride 0.9% 2.5 Ml Syringe) 2.5 ml FLUSH ASDIRECTED PRN PRN Reason: Keep Vein Open Last Admin: 04/01/21 15:33 Dose: 2.5 ml Documented by: RASHID Labs: Laboratory Tests 04/01/21 04/01/21 04/01/21 Range/Units 14:53 14:53 15:30 WBC 7.33 (4.0-11.0) K/uL RBC 5.14 (4.50-5.90) M/uL Hgb 14.8 (13.0-17.0) g/dL Hct 44.4 (38.0-50.0) % MCV 86.4 (80.0-98.0) fL MCH 28.8 (27.0-32.0) pg MCHC 33.3 (31.0-37.0) g/dL RDW Std Deviation 48.6 (28.0-62.0) fl RDW Coeff of Cresencio 16 H (11.0-15.0) % Plt Count 201 (150-400) K/uL MPV 9.90 (7.40-12.00) fL Neut % (Auto) 69.1 (48.0-80.0) % Lymph % (Auto) 19.6 (16.0-40.0) % Knox % (Auto) 8.7 (0.0-15.0) % Eos % (Auto) 2.3 (0.0-7.0) % Baso % (Auto) 0.3 (0.0-1.5) % Neut # (Auto) 5.1 (1.4-5.7) K/uL Lymph # (Auto) 1.4 (0.6-2.4) K/uL Knox # (Auto) 0.6 (0.0-0.8) K/uL Eos # (Auto) 0.2 (0.0-0.7) K/uL Baso # (Auto) 0.0 (0.0-0.1) K/uL Nucleated RBC % 0.0 /100WBC Nucleated RBCs # 0 K/uL Sodium 144 (136-148) mmol/L Potassium 4.0 (3.5-5.1) mmol/L Chloride 108 H (98-107) mmol/L Carbon Dioxide 25.8 (21.0-32.0) mmol/L BUN 12 (7.0-18.0) mg/dL Creatinine 1.1 (0.8-1.3) mg/dL Est Cr Clr Drug Dosing 92.81 mL/min Estimated GFR (MDRD) > 60.0 ml/min Glucose 98 (74-106) mg/dL Calcium 8.9 (8.5-10.1) mg/dL Magnesium 1.9 (1.8-2.4) mg/dL Total Bilirubin 1.1 H (0.2-1.0) mg/dL AST 27 (15-37) IU/L ALT 35 (14-63) IU/L Alkaline Phosphatase 84 (46-116) U/L Troponin I < 0.050 (0.000-0.056) ng/mL B-Natriuretic Peptide 2151 H (<100) PG/ML Total Protein 6.0 L (6.4-8.2) g/dL Albumin 3.0 L (3.4-5.0) g/dL Globulin 3.0 (2.6-4.0) g/dL Albumin/Globulin Ratio 1.0 (0.9-1.6) Lipase 109 (73-393) U/L TSH 3rd Generation 1.49 (0.36-3.74) uIU/mL Meds: Medications Generic Name Dose Route Start Last Admin Trade Name Freq PRN Reason Stop Dose Admin Sodium Chloride 10 ml 04/01/21 14:35 04/01/21 15:33 Sodium Chloride 0.9% 10 Ml Syringe FLUSH 10 ml ASDIRECTED PRN Administration Keep Vein Open Sodium Chloride 2.5 ml 04/01/21 14:35 04/01/21 15:33 Sodium Chloride 0.9% 2.5 Ml Syringe FLUSH 2.5 ml ASDIRECTED PRN Administration Keep Vein Open Discontinued Medications Generic Name Dose Route Start Last Admin Trade Name Freq PRN Reason Stop Dose Admin Furosemide 40 mg 04/01/21 15:47 04/01/21 15:56 Furosemide 40 Mg/4 Ml Vial IVPUSH 04/01/21 15:48 40 mg NOW ONE Administration Departure - Departure Time of Disposition: 16:08 Disposition: Home, Self-Care 01 Condition: Good Clinical Impression: CHF (congestive heart failure) - Discharge Information Prescriptions: Furosemide [Lasix] 40 mg PO DAILY #60 tab Potassium Chloride 20 meq PO DAILY #60 tablet.er Instructions: Heart Failure, Self Care, [id number] Referrals: Hudson Bell MD [Primary Care Provider] - Forms: ED Department Discharge Additional Instructions: You need to come by about 3:00 tomorrow to the cardiology clinic in the basement . The cardiology clinic will work a.m. where they had a cancellation tomorrow. You need to have an echocardiogram and cardiology evaluation. [facility] - cardiology [address] [place] [id number] [facility] - Primary Care [address] [place] [address] [facility] [address] [place] [id number] The following information is given to patients seen in the emergency department who are being discharged to home. This information is to outline your options for follow-up care. We provide all patients seen in our emergency department with a follow-up referral. The need for follow-up, as well as the timing and circumstances, are variable depending upon the specifics of your emergency department visit. If you don't have a primary care physician on staff, we will provide you with a referral. We always advise you to contact your personal physician following an emergency department visit to inform them of the circumstance of the visit and for follow-up with them and/or the need for any referrals to a consulting specialist. The emergency department will also refer you to a specialist when appropriate. This referral assures that you have the opportunity for follow-up care with a specialist. All of these measure are taken in an effort to provide you with optimal care, which includes your follow-up. Under all circumstances we always encourage you to contact your private ph ysician who remains a resource for coordinating your care. When calling for follow-up care, please make the office aware that this follow-up is from your recent emergency room visit. If for any reason you are refused follow-up, please contact the [facility] Emergency Department at and asked to speak to the emergency department charge nurse. Sepsis Event Note (ED) - Evaluation Sepsis Screening Result: No Definite Risk - Focused Exam Vital Signs: Vital Signs Temp Pulse Resp BP Pulse Ox 04/01/21 16:07 82 18 148/113 H 98 04/01/21 16:00 74 18 149/86 H 98 04/01/21 15:25 84 18 118/72 98 04/01/21 14:50 36.8 C 94 20 131/72 98 04/01/21 13:59 36.3 C 109 H 16 151/110 H 96 History of present illness: [] Patient has edema in his legs and swelling of his belly for 1 week. He has dysp shannon on exertion and he has pain in his legs when he stands. His dyspnea is also bad when he lays flat. The patient has no history of heart disease liver disease or kidney disease. The pain in the legs is moderately severe when he is trying to stand up or walk. This is all gradually come on during the last week. He used to chew tobacco does not smoke and he does drink alcohol but not excessively according to him. Review of systems: As per history of present illness and below otherwise all systems reviewed and negative. Past medical history: As per history of present illness and as reviewed below otherwise noncontributory. Surgical history: As per history of present illness and as reviewed below otherwise noncontributory. Social history: No reported history of drug or alcohol abuse. Family history: As per history of present illness and as reviewed below otherwise noncontributory. Physical exam: Constitutional - well developed, well-nourished and in no acute distress HEENT - normocephalic, no evidence of trauma - external nose and mouth normal - no mass in neck and no JVD - mucosae moist EYES - full EOM, PERRL, no icterus - no evidence of inflammation, injection, or drainage Respiratory - no respiratory distress, equal bilateral expansion, lungs clear to auscultation and no abnormal lung sounds Cardiovascular - Regular Rhythm with S1 and S2 appreciated and no murmur, gallop or rub. GI - abdomen soft with distension but no organomegaly - normal bowel sounds - no guard or rebound Musculoskeletal no gross deformity of long bones or joints - no tenderness, but with significant 2+ pitting edema both lower extremities Neurologic - Alert and oriented times four - CN II-XII grossly intact - motor sensory and coordination symmetrically normal Psychiatric - appropriate mood and affect with normal thought content Hematologic - No petechiae or purpura - mucosa appropriate color and sclera not pale - normal nail bed color and refill Integument - no rash or evidence of trauma - normal turgor Diagnostics: [] Therapeutics: [] Impression: [] Plan: [] Definitive disposition and diagnosis as appropriate pending reevaluation and review of above. - My Orders Last 24 Hours: My Active Orders 04/01/21 14:35 UA W/JODI RFLX IF INDICATED [URIN] Stat Sodium Chloride 0.9% [Saline Flush] 10 ml FLUSH ASDIRECTED PRN Sodium Chloride 0.9% [Saline Flush] 2.5 ml FLUSH ASDIRECTED PRN Saline Lock Insert [OM.PC] Stat 04/01/21 14:36 EKG 12 Lead [EKG Documentation Completion] [RC] STAT - Assessment/Plan Last 24 Hours: My Active Orders 04/01/21 14:35 UA W/JODI RFLX IF INDICATED [URIN] Stat Sodium Chloride 0.9% [Saline Flush] 10 ml FLUSH ASDIRECTED PRN Sodium Chloride 0.9% [Saline Flush] 2.5 ml FLUSH ASDIRECTED PRN Saline Lock Insert [OM.PC] Stat 04/01/21 14:36 EKG 12 Lead [EKG Documentation Completion] [RC] STAT
--- NOTE | 2021-04-01 15:31 | CR ---
For Patients: As a result of the Cures Act, medical imaging exams and procedure reports are released immediately into your electronic medical record. You may view this report before your referring provider. If you have questions, please contact your health care provider. INDICATION: Dyspnea. TECHNIQUE: AP chest. COMPARISON: None. FINDINGS: Heart is [id number] enlarged. Pulmonary vascular congestion pattern is noted. No airspace opacities to suggest pneumonia. No pleural fluid is seen on the single view study. No pneumothorax. IMPRESSION: Cardiomegaly with mild pulmonary vascular congestion. Dictated by Angel Pena MD @ 04/01/2021 3:29:51 PM Dictated by: Angel Pena MD @ 04/01/2021 15:29:56 (Electronically Signed)
[2021-04-01 15:33] LABS: BLOOD UREA NITROGEN,BUN 12 mg/dL (7.0-18.0); CARBON DIOXIDE,CO2 25.8 mmol/L (21.0-32.0); CHLORIDE,CL 108 mmol/L (98-107); GLUCOSE RANDOM 98 mg/dL (74-106); LIPASE 109 U/L (73-393); SODIUM,NA 144 mmol/L (136-148)
[2021-04-01] MEDS ORDERED: Furosemide 40 MG/4 ML VIAL IVPUSH ONE (15:47)
== END 2021-04-01 16:22 | disposition home or self-care (01) ==
LOC: MW.ED 13:39
DX: I11.0 Hypertensive heart disease with heart failure (principal); I50.9 Heart failure, unspecified; K21.9 Gastro-esophageal reflux disease without esophagitis; E66.9 Obesity, unspecified; Z68.32 Body mass index [BMI] 32.0-32.9, adult; Z79.899 Other long term (current) drug therapy
CPT/HCPCS: 36415; 71045; 80053; 83690; 83735; 83880; 84443; 84484; 85025; 93005; 99285; J1940; 93010; 96374; 99284

== ENCOUNTER 2021-04-02 16:24 | Inpatient (IN) | payer OTHER ==
[2021-04-02] MEDS ORDERED: Furosemide 40 MG/4 ML VIAL IVPUSH ONE (18:45)
[2021-04-02 19:54] LABS: BLOOD UREA NITROGEN,BUN 16 mg/dL (7.0-18.0); CARBON DIOXIDE,CO2 28.3 mmol/L (21.0-32.0); CHLORIDE,CL 108 mmol/L (98-107); GLUCOSE RANDOM 117 mg/dL (74-106); SODIUM,NA 144 mmol/L (136-148)
[2021-04-02 22:10] LABS: HEMOGLOBIN A1C 6.1 %
--- NOTE | 2021-04-02 22:41 | PCM.HP.2 ---
H&P History of Present Illness - General Date of Service: 04/02/21 Admit Problem/Dx: Admission Diagnosis/Problem Admission Diagnosis/Problem CHF, Congestive heart failure - History of Present Illness Initial Comments - Free Text/Narative: 50 yo male who presents with one month history of shortness of breath, leg e thao, weight gain, and orthopnea. Patient states he is unable to get his work boots on anymore. He did have a cholecystectomy last month but symptoms started before the surgery. He called Dr. Bell and he gave him lasix but was unable to book an appointment with him. He went to the ED yesterday who referred him to Dr. Muñiz who after seeing in clinic today referred him for admission. 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 - Related Data Allergies/Adverse Reactions: Allergies Allergy/AdvReac Type Severity Reaction Status Date / Time No Known Allergies Allergy Verified 04/02/21 17:04 Home Medications: Home Meds Hydrocodone/Acetaminophen [Hydrocodone-Acetamin 5-325 mg] 1 - 2 each PO Q6HR PRN #25 tab 02/27/21 [Rx] Furosemide [Lasix] 40 mg PO DAILY #60 tab 04/01/21 [Rx] Potassium Chloride 20 meq PO DAILY #60 tablet.er 04/01/21 [Rx] Past Medical History HEENT History: Reports: Other (See Below) Other HEENT History: wears glasses Cardiovascular History: Reports: Hypertension Other Cardiovascular History: HTN in the past, has lost weight Respiratory History: Reports: Other (See Below) Other Respiratory History: sleep apnea in the past, states has lost weight and no longer needs CPAP Gastrointestinal History: Reports: GERD, Helicobacter Pylori Genitourinary History: Reports: None Musculoskeletal History: Reports: Fracture Other Musculoskeletal History: fx both arms, fingers & wrist Neurological History: Reports: Concussion Psychiatric History: Reports: None Endocrine/Metabolic History: Reports: Obesity/BMI 30+ Hematologic History: Reports: None Immunologic History: Reports: None Oncologic (Cancer) History: Reports: None Dermatologic History: Reports: None - Infectious Disease History Infectious Disease History: Reports: Chicken Pox - Past Surgical History Head Surgeries/Procedures: Reports: None HEENT Surgical History: Reports: None Cardiovascular Surgical History: Reports: None Respiratory Surgical History: Reports: None GI Surgical History: Reports: Cholecystectomy, EGD Other GI Surgeries/Procedures: EGD on 02/25/21 Male Surgical History: Reports: None Endocrine Surgical History: Reports: None Neurological Surgical History: Reports: None Musculoskeletal Surgical History: Reports: Arthroscopic Knee, ORIF, Shoulder Surgery Other Musculoskeletal Surgeries/Procedures:: ORIF both arms, RTCR left shoulder, surgery for fx left ring finger, left knee arthroscopy Oncologic Surgical History: Reports: None Dermatological Surgical History: Reports: None Social & Family History - Family History Family Medical History: No Pertinent Family History - Tobacco Use Tobacco Use Status *Q: Current Every Day Tobacco User Years of Tobacco use: 28 Packs/Tins Daily: 0.5 - Caffeine Use Caffeine Use: Reports: Tea - Alcohol Use Days Per Week of Alcohol Use: 7 Number of Drinks Per Day: 3 Total Drinks Per Week: 21 Date of Last Drink: 03/03/21 - Recreational Drug Use Recreational Drug Use: No H&P Review of Systems - Review of Systems: Review Of Systems: Comprehensive ROS is negative, except as noted in HPI. Exam - Exam Exam: See Below - Vital Signs Vital Signs: Last Vital Signs Temp 36.1 C 04/02/21 21:25 Pulse 104 H 04/02/21 21:25 Resp 18 04/02/21 21:25 BP 146/109 H 04/02/21 21:25 Pulse Ox 95 04/02/21 21:25 Weight: 111.9 kg - Exam General: Alert, Oriented HEENT: Mucosa Moist & [place] Neck: Supple Lungs: Clear to Auscultation, Normal Respiratory Effort Cardiovascular: Regular Rate, Regular Rhythm GI/Abdominal Exam: Normal Bowel Sounds, Soft, Non-Tender Extremities: Non-Tender, Pedal Edema (+3 edema) Skin: Warm, Dry, Intact Neurological: No: Focal Deficit - Patient Data Lab Results Last 24 hrs: Laboratory Results - last 24 hr 04/02/21 04/02/21 04/02/21 Range/Units 19:25 19:28 19:28 WBC 7.43 (4.0-11.0) K/uL RBC 5.38 (4.50-5.90) M/uL Hgb 15.3 (13.0-17.0) g/dL Hct 45.8 (38.0-50.0) % MCV 85.1 (80.0-98.0) fL MCH 28.4 (27.0-32.0) pg MCHC 33.4 (31.0-37.0) g/dL RDW Std Deviation 48.6 (28.0-62.0) fl RDW Coeff of Cresencio 16 H (11.0-15.0) % Plt Count 218 (150-400) K/uL MPV 9.60 (7.40-12.00) fL Neut % (Auto) 69.1 (48.0-80.0) % Lymph % (Auto) 20.5 (16.0-40.0) % [place] % (Auto) 7.9 (0.0-15.0) % Eos % (Auto) 2.2 (0.0-7.0) % Baso % (Auto) 0.3 (0.0-1.5) % Neut # (Auto) 5.1 (1.4-5.7) K/uL Lymph # (Auto) 1.5 (0.6-2.4) K/uL [place] # (Auto) 0.6 (0.0-0.8) K/uL Eos # (Auto) 0.2 (0.0-0.7) K/uL Baso # (Auto) 0.0 (0.0-0.1) K/uL Sodium 144 (136-148) mmol/L Potassium 4.0 (3.5-5.1) mmol/L Chloride 108 H (98-107) mmol/L Carbon Dioxide 28.3 (21.0-32.0) mmol/L BUN 16 (7.0-18.0) mg/dL Creatinine 1.0 (0.8-1.3) mg/dL Est Cr Clr Drug Dosing 102.09 mL/min Estimated GFR (MDRD) > 60.0 ml/min Glucose 117 H (74-106) mg/dL Hemoglobin A1c (4.5 - 6.2) % Calcium 8.5 (8.5-10.1) mg/dL Total Bilirubin 1.0 (0.2-1.0) mg/dL AST 23 (15-37) IU/L ALT 34 (14-63) IU/L Alkaline Phosphatase 84 (46-116) U/L Troponin I (0.000-0.056) ng/mL Total Protein 6.4 (6.4-8.2) g/dL Albumin 3.2 L (3.4-5.0) g/dL Globulin 3.2 (2.6-4.0) g/dL Albumin/Globulin Ratio 1.0 (0.9-1.6) SARS-CoV-2 RNA (KELLEN) NEGATIVE (NEGATIVE) 04/02/21 04/02/21 Range/Units 21:48 21:48 WBC (4.0-11.0) K/uL RBC (4.50-5.90) M/uL Hgb (13.0-17.0) g/dL Hct (38.0-50.0) % MCV (80.0-98.0) fL MCH (27.0-32.0) pg MCHC (31.0-37.0) g/dL RDW Std Deviation (28.0-62.0) fl RDW Coeff of Cresencio (11.0-15.0) % Plt Count (150-400) K/uL MPV (7.40-12.00) fL Neut % (Auto) (48.0-80.0) % Lymph % (Auto) (16.0-40.0) % [place] % (Auto) (0.0-15.0) % Eos % (Auto) (0.0-7.0) % Baso % (Auto) (0.0-1.5) % Neut # (Auto) (1.4-5.7) K/uL Lymph # (Auto) (0.6-2.4) K/uL [place] # (Auto) (0.0-0.8) K/uL Eos # (Auto) (0.0-0.7) K/uL Baso # (Auto) (0.0-0.1) K/uL Sodium (136-148) mmol/L Potassium (3.5-5.1) mmol/L Chloride (98-107) mmol/L Carbon Dioxide (21.0-32.0) mmol/L BUN (7.0-18.0) mg/dL Creatinine (0.8-1.3) mg/dL Est Cr Clr Drug Dosing mL/min Estimated GFR (MDRD) ml/min Glucose (74-106) mg/dL Hemoglobin A1c 6.1 (4.5 - 6.2) % Calcium (8.5-10.1) mg/dL Total Bilirubin (0.2-1.0) mg/dL AST (15-37) IU/L ALT (14-63) IU/L Alkaline Phosphatase (46-116) U/L Troponin I < 0.050 (0.000-0.056) ng/mL Total Protein (6.4-8.2) g/dL Albumin (3.4-5.0) g/dL Globulin (2.6-4.0) g/dL Albumin/Globulin Ratio (0.9-1.6) SARS-CoV-2 RNA (KELLEN) (NEGATIVE) Result Diagrams: 04/03/21 03:33 04/03/21 03:33 Sepsis Event Note - Evaluation Sepsis Screening Result: No Definite Risk - Focused Exam Vital Signs: Vital Signs Temp Pulse Resp BP Pulse Ox 04/02/21 21:25 36.1 C 104 H 18 146/109 H 95 04/02/21 17:10 36.1 C 107 H 17 145/111 H 98 Problem List Initiated/Reviewed/Updated: Yes Orders Last 24hrs: Active Orders 24 hr Category Date Time Status Patient Status [ADT] Routine ADT 04/02/21 22:34 Ordered Antiembolic Devices [RC] PER UNIT ROUTINE Care 04/02/21 22:35 Ordered Daily Weight [Height and Weight] [RC] DAILY Care 04/02/21 20:28 Active Intake and Output Strict [RC] Q12H Care 04/02/21 20:28 Active Oxygen Therapy [RC] PRN Care 04/02/21 22:34 Ordered Telemetry Monitoring [Cardiac Monitoring] [RC] Q8H Care 04/02/21 17:50 Active Up ad Mona [RC] ASDIRECTED Care 04/02/21 22:34 Ordered VTE/DVT Education [RC] PER UNIT ROUTINE Care 04/02/21 22:34 Ordered Vital Signs [RC] Q4H Care 04/02/21 22:34 Ordered Heart Healthy Diet [DIET] Diet 04/02/21 Dinner Active Echo Comp wo Cont [US] Routine Exams 04/02/21 20:30 Ordered B-TYPE NATRIURETIC PEPTIDE,BNP [CHEM] AM Lab 04/03/21 05:11 Ordered BASIC METABOLIC PANEL,BMP [CHEM] AM Lab 04/03/21 05:11 Ordered CBC WITH AUTO DIFF [HEME] AM Lab 04/03/21 05:11 Ordered INR,PT,PROTHROMBIN TIME [COAG] AM Lab 04/03/21 05:11 Ordered TROPONIN I [CHEM] Q6H Lab 04/03/21 03:32 Ordered TROPONIN I [CHEM] Q6H Lab 04/03/21 09:32 Ordered UA W/MICROSCOPIC [URIN] Routine Lab 04/02/21 20:29 Ordered Enoxaparin [Lovenox] Med 04/02/21 22:45 Ordered 40 mg SUBCUT Q24H Furosemide [Lasix] Med 04/03/21 09:00 Active 40 mg IVPUSH BID Sequential Compression Device [OM.PC] Per Unit Routine Oth 04/02/21 22:35 Ordered Resuscitation Status Routine Resus Stat 04/02/21 22:34 Ordered Medication Orders Furosemide (Furosemide 40 Mg/4 Ml Vial) 40 mg IVPUSH BID [facility] Assessment/Plan Comment:: 50 yo male admitted for new onset CHF. We will diuresis with lasix, daily weights, and order an Echocardiogram.
[2021-04-02] MEDS: Enoxaparin 40 MG/0.4 ML Syringe SUBCUT SCH (23:36)
[2021-04-03 03:53] LABS: BLOOD UREA NITROGEN,BUN 16 mg/dL (7.0-18.0); CARBON DIOXIDE,CO2 26.1 mmol/L (21.0-32.0); CHLORIDE,CL 107 mmol/L (98-107); GLUCOSE RANDOM 90 mg/dL (74-106); POTASSIUM,K 3.6 mmol/L (3.5-5.1); SODIUM,NA 144 mmol/L (136-148)
[2021-04-03] MEDS ORDERED: Potassium Chloride 20 MEQ Tab.ER PO ONE (06:55)
--- NOTE | 2021-04-03 09:42 | PCM.PN ---
- General Info Date of Service: 04/03/21 - Review of Systems Systems Review Comment:: feeling better, shortness of breath improved - Patient Data Vitals - Most Recent: Last Vital Signs Temp 35.9 C L 04/03/21 08:00 Pulse 96 04/03/21 08:00 Resp 20 04/03/21 08:00 BP 142/101 H 04/03/21 08:00 Pulse Ox 97 04/03/21 08:00 Weight - Most Recent: 111.9 kg I&O - Last 24 Hours: Intake & Output 04/02/21 04/03/21 04/03/21 22:59 06:59 14:59 Intake Total 1600 Output Total 6000 Balance -4400 Lab Results Last 24 Hours: Laboratory Results - last 24 hr 04/02/21 04/02/21 04/02/21 Range/Units 19:25 19:28 19:28 WBC 7.43 (4.0-11.0) K/uL RBC 5.38 (4.50-5.90) M/uL Hgb 15.3 (13.0-17.0) g/dL Hct 45.8 (38.0-50.0) % MCV 85.1 (80.0-98.0) fL MCH 28.4 (27.0-32.0) pg MCHC 33.4 (31.0-37.0) g/dL RDW Std Deviation 48.6 (28.0-62.0) fl RDW Coeff of Cresencio 16 H (11.0-15.0) % Plt Count 218 (150-400) K/uL MPV 9.60 (7.40-12.00) fL Neut % (Auto) 69.1 (48.0-80.0) % Lymph % (Auto) 20.5 (16.0-40.0) % [place] % (Auto) 7.9 (0.0-15.0) % Eos % (Auto) 2.2 (0.0-7.0) % Baso % (Auto) 0.3 (0.0-1.5) % Neut # (Auto) 5.1 (1.4-5.7) K/uL Lymph # (Auto) 1.5 (0.6-2.4) K/uL [place] # (Auto) 0.6 (0.0-0.8) K/uL Eos # (Auto) 0.2 (0.0-0.7) K/uL Baso # (Auto) 0.0 (0.0-0.1) K/uL Nucleated RBC % /100WBC Nucleated RBCs # K/uL INR Sodium 144 (136-148) mmol/L Potassium 4.0 (3.5-5.1) mmol/L Chloride 108 H (98-107) mmol/L Carbon Dioxide 28.3 (21.0-32.0) mmol/L BUN 16 (7.0-18.0) mg/dL Creatinine 1.0 (0.8-1.3) mg/dL Est Cr Clr Drug Dosing 102.09 mL/min Estimated GFR (MDRD) > 60.0 ml/min Glucose 117 H (74-106) mg/dL Hemoglobin A1c (4.5 - 6.2) % Calcium 8.5 (8.5-10.1) mg/dL Total Bilirubin 1.0 (0.2-1.0) mg/dL AST 23 (15-37) IU/L ALT 34 (14-63) IU/L Alkaline Phosphatase 84 (46-116) U/L Troponin I (0.000-0.056) ng/mL B-Natriuretic Peptide (<100) PG/ML Total Protein 6.4 (6.4-8.2) g/dL Albumin 3.2 L (3.4-5.0) g/dL Globulin 3.2 (2.6-4.0) g/dL Albumin/Globulin Ratio 1.0 (0.9-1.6) Urine Color Urine Appearance Urine pH (5.0-8.0) Ur Specific [place] (1.001-1.035) Urine Protein (NEGATIVE) mg/dL Urine Glucose (UA) (NEGATIVE) mg/dL Urine Ketones (NEGATIVE) mg/dL Urine Occult Blood (NEGATIVE) Urine Nitrite (NEGATIVE) Urine Bilirubin (NEGATIVE) Urine Urobilinogen (<2.0) EU/dL Ur Leukocyte Esterase (NEGATIVE) Urine RBC (0-2/HPF) Urine WBC (0-5/HPF) Ur Epithelial Cells (NONE-FEW) Urine Bacteria (NEGATIVE) SARS-CoV-2 RNA (KELLEN) NEGATIVE (NEGATIVE) 04/02/21 04/02/21 04/02/21 Range/Units 21:48 21:48 22:30 WBC (4.0-11.0) K/uL RBC (4.50-5.90) M/uL Hgb (13.0-17.0) g/dL Hct (38.0-50.0) % MCV (80.0-98.0) fL MCH (27.0-32.0) pg MCHC (31.0-37.0) g/dL RDW Std Deviation (28.0-62.0) fl RDW Coeff of Cresencio (11.0-15.0) % Plt Count (150-400) K/uL MPV (7.40-12.00) fL Neut % (Auto) (48.0-80.0) % Lymph % (Auto) (16.0-40.0) % [place] % (Auto) (0.0-15.0) % Eos % (Auto) (0.0-7.0) % Baso % (Auto) (0.0-1.5) % Neut # (Auto) (1.4-5.7) K/uL Lymph # (Auto) (0.6-2.4) K/uL [place] # (Auto) (0.0-0.8) K/uL Eos # (Auto) (0.0-0.7) K/uL Baso # (Auto) (0.0-0.1) K/uL Nucleated RBC % /100WBC Nucleated RBCs # K/uL INR Sodium (136-148) mmol/L Potassium (3.5-5.1) mmol/L Chloride (98-107) mmol/L Carbon Dioxide (21.0-32.0) mmol/L BUN (7.0-18.0) mg/dL Creatinine (0.8-1.3) mg/dL Est Cr Clr Drug Dosing mL/min Estimated GFR (MDRD) ml/min Glucose (74-106) mg/dL Hemoglobin A1c 6.1 (4.5 - 6.2) % Calcium (8.5-10.1) mg/dL Total Bilirubin (0.2-1.0) mg/dL AST (15-37) IU/L ALT (14-63) IU/L Alkaline Phosphatase (46-116) U/L Troponin I < 0.050 (0.000-0.056) ng/mL B-Natriuretic Peptide (<100) PG/ML Total Protein (6.4-8.2) g/dL Albumin (3.4-5.0) g/dL Globulin (2.6-4.0) g/dL Albumin/Globulin Ratio (0.9-1.6) Urine Color YELLOW Urine Appearance CLEAR Urine pH 6.5 (5.0-8.0) Ur Specific [place] 1.015 (1.001-1.035) Urine Protein NEGATIVE (NEGATIVE) mg/dL Urine Glucose (UA) NEGATIVE (NEGATIVE) mg/dL Urine Ketones NEGATIVE (NEGATIVE) mg/dL Urine Occult Blood NEGATIVE (NEGATIVE) Urine Nitrite NEGATIVE (NEGATIVE) Urine Bilirubin NEGATIVE (NEGATIVE) Urine Urobilinogen 0.2 (<2.0) EU/dL Ur Leukocyte Esterase NEGATIVE (NEGATIVE) Urine RBC 0-1 (0-2/HPF) Urine WBC 0-1 (0-5/HPF) Ur Epithelial Cells RARE (NONE-FEW) Urine Bacteria RARE (NEGATIVE) SARS-CoV-2 RNA (KELLEN) (NEGATIVE) 04/03/21 04/03/21 04/03/21 Range/Units 03:33 03:33 03:33 WBC (4.0-11.0) K/uL RBC (4.50-5.90) M/uL Hgb (13.0-17.0) g/dL Hct (38.0-50.0) % MCV (80.0-98.0) fL MCH (27.0-32.0) pg MCHC (31.0-37.0) g/dL RDW Std Deviation (28.0-62.0) fl RDW Coeff of Cresencio (11.0-15.0) % Plt Count (150-400) K/uL MPV (7.40-12.00) fL Neut % (Auto) (48.0-80.0) % Lymph % (Auto) (16.0-40.0) % [place] % (Auto) (0.0-15.0) % Eos % (Auto) (0.0-7.0) % Baso % (Auto) (0.0-1.5) % Neut # (Auto) (1.4-5.7) K/uL Lymph # (Auto) (0.6-2.4) K/uL [place] # (Auto) (0.0-0.8) K/uL Eos # (Auto) (0.0-0.7) K/uL Baso # (Auto) (0.0-0.1) K/uL Nucleated RBC % /100WBC Nucleated RBCs # K/uL INR 1.51 Sodium (136-148) mmol/L Potassium (3.5-5.1) mmol/L Chloride (98-107) mmol/L Carbon Dioxide (21.0-32.0) mmol/L BUN (7.0-18.0) mg/dL Creatinine (0.8-1.3) mg/dL Est Cr Clr Drug Dosing mL/min Estimated GFR (MDRD) ml/min Glucose (74-106) mg/dL Hemoglobin A1c (4.5 - 6.2) % Calcium (8.5-10.1) mg/dL Total Bilirubin (0.2-1.0) mg/dL AST (15-37) IU/L ALT (14-63) IU/L Alkaline Phosphatase (46-116) U/L Troponin I < 0.050 (0.000-0.056) ng/mL B-Natriuretic Peptide 2492 H (<100) PG/ML Total Protein (6.4-8.2) g/dL Albumin (3.4-5.0) g/dL Globulin (2.6-4.0) g/dL Albumin/Globulin Ratio (0.9-1.6) Urine Color Urine Appearance Urine pH (5.0-8.0) Ur Specific [place] (1.001-1.035) Urine Protein (NEGATIVE) mg/dL Urine Glucose (UA) (NEGATIVE) mg/dL Urine Ketones (NEGATIVE) mg/dL Urine Occult Blood (NEGATIVE) Urine Nitrite (NEGATIVE) Urine Bilirubin (NEGATIVE) Urine Urobilinogen (<2.0) EU/dL Ur Leukocyte Esterase (NEGATIVE) Urine RBC (0-2/HPF) Urine WBC (0-5/HPF) Ur Epithelial Cells (NONE-FEW) Urine Bacteria (NEGATIVE) SARS-CoV-2 RNA (KELLEN) (NEGATIVE) 04/03/21 04/03/21 Range/Units 03:33 03:33 WBC 7.54 (4.0-11.0) K/uL RBC 5.23 (4.50-5.90) M/uL Hgb 15.2 (13.0-17.0) g/dL Hct 45.0 (38.0-50.0) % MCV 86.0 (80.0-98.0) fL MCH 29.1 (27.0-32.0) pg MCHC 33.8 (31.0-37.0) g/dL RDW Std Deviation 48.9 (28.0-62.0) fl RDW Coeff of Cresencio 16 H (11.0-15.0) % Plt Count 212 (150-400) K/uL MPV 9.90 (7.40-12.00) fL Neut % (Auto) 69.2 (48.0-80.0) % Lymph % (Auto) 21.5 (16.0-40.0) % [place] % (Auto) 6.6 (0.0-15.0) % Eos % (Auto) 2.4 (0.0-7.0) % Baso % (Auto) 0.3 (0.0-1.5) % Neut # (Auto) 5.2 (1.4-5.7) K/uL Lymph # (Auto) 1.6 (0.6-2.4) K/uL [place] # (Auto) 0.5 (0.0-0.8) K/uL Eos # (Auto) 0.2 (0.0-0.7) K/uL Baso # (Auto) 0.0 (0.0-0.1) K/uL Nucleated RBC % 0.0 /100WBC Nucleated RBCs # 0 K/uL INR Sodium 144 (136-148) mmol/L Potassium 3.6 (3.5-5.1) mmol/L Chloride 107 (98-107) mmol/L Carbon Dioxide 26.1 (21.0-32.0) mmol/L BUN 16 (7.0-18.0) mg/dL Creatinine 0.9 (0.8-1.3) mg/dL Est Cr Clr Drug Dosing 113.44 mL/min Estimated GFR (MDRD) > 60.0 ml/min Glucose 90 (74-106) mg/dL Hemoglobin A1c (4.5 - 6.2) % Calcium 8.6 (8.5-10.1) mg/dL Total Bilirubin (0.2-1.0) mg/dL AST (15-37) IU/L ALT (14-63) IU/L Alkaline Phosphatase (46-116) U/L Troponin I (0.000-0.056) ng/mL B-Natriuretic Peptide (<100) PG/ML Total Protein (6.4-8.2) g/dL Albumin (3.4-5.0) g/dL Globulin (2.6-4.0) g/dL Albumin/Globulin Ratio (0.9-1.6) Urine Color Urine Appearance Urine pH (5.0-8.0) Ur Specific [place] (1.001-1.035) Urine Protein (NEGATIVE) mg/dL Urine Glucose (UA) (NEGATIVE) mg/dL Urine Ketones (NEGATIVE) mg/dL Urine Occult Blood (NEGATIVE) Urine Nitrite (NEGATIVE) Urine Bilirubin (NEGATIVE) Urine Urobilinogen (<2.0) EU/dL Ur Leukocyte Esterase (NEGATIVE) Urine RBC (0-2/HPF) Urine WBC (0-5/HPF) Ur Epithelial Cells (NONE-FEW) Urine Bacteria (NEGATIVE) SARS-CoV-2 RNA (KELLEN) (NEGATIVE) Med Orders - Current: Current Medications Enoxaparin Sodium (Enoxaparin 40 Mg/0.4 Ml Syringe) 40 mg SUBCUT Q24H ALEXA Last Admin: 04/02/21 23:36 Dose: 40 mg Documented by: Furosemide (Furosemide 40 Mg/4 Ml Vial) 40 mg IVPUSH BID ALEXA Discontinued Medications Furosemide (Furosemide 40 Mg/4 Ml Vial) 40 mg IVPUSH ONETIME ONE Stop: 04/02/21 18:46 Last Admin: 04/02/21 19:22 Dose: 40 mg Documented by: Potassium Chloride (Potassium Chloride 20 Meq Tab.Er) 40 meq PO ONETIME ONE Stop: 04/03/21 06:56 - Exam General: Alert, Oriented Neck: Supple Lungs: Clear to Auscultation, Normal Respiratory Effort Cardiovascular: Regular Rate, Regular Rhythm Extremities: Pedal Edema (+3) Skin: Warm, Dry, Intact Neurological: No New Focal Deficit - Patient Data Lab Results Last 24 hrs: Laboratory Results - last 24 hr 04/02/21 04/02/21 04/02/21 Range/Units 19:25 19:28 19:28 WBC 7.43 (4.0-11.0) K/uL RBC 5.38 (4.50-5.90) M/uL Hgb 15.3 (13.0-17.0) g/dL Hct 45.8 (38.0-50.0) % MCV 85.1 (80.0-98.0) fL MCH 28.4 (27.0-32.0) pg MCHC 33.4 (31.0-37.0) g/dL RDW Std Deviation 48.6 (28.0-62.0) fl RDW Coeff of Cresencio 16 H (11.0-15.0) % Plt Count 218 (150-400) K/uL MPV 9.60 (7.40-12.00) fL Neut % (Auto) 69.1 (48.0-80.0) % Lymph % (Auto) 20.5 (16.0-40.0) % [place] % (Auto) 7.9 (0.0-15.0) % Eos % (Auto) 2.2 (0.0-7.0) % Baso % (Auto) 0.3 (0.0-1.5) % Neut # (Auto) 5.1 (1.4-5.7) K/uL Lymph # (Auto) 1.5 (0.6-2.4) K/uL [place] # (Auto) 0.6 (0.0-0.8) K/uL Eos # (Auto) 0.2 (0.0-0.7) K/uL Baso # (Auto) 0.0 (0.0-0.1) K/uL Nucleated RBC % /100WBC Nucleated RBCs # K/uL INR Sodium 144 (136-148) mmol/L Potassium 4.0 (3.5-5.1) mmol/L Chloride 108 H (98-107) mmol/L Carbon Dioxide 28.3 (21.0-32.0) mmol/L BUN 16 (7.0-18.0) mg/dL Creatinine 1.0 (0.8-1.3) mg/dL Est Cr Clr Drug Dosing 102.09 mL/min Estimated GFR (MDRD) > 60.0 ml/min Glucose 117 H (74-106) mg/dL Hemoglobin A1c (4.5 - 6.2) % Calcium 8.5 (8.5-10.1) mg/dL Total Bilirubin 1.0 (0.2-1.0) mg/dL AST 23 (15-37) IU/L ALT 34 (14-63) IU/L Alkaline Phosphatase 84 (46-116) U/L Troponin I (0.000-0.056) ng/mL B-Natriuretic Peptide (<100) PG/ML Total Protein 6.4 (6.4-8.2) g/dL Albumin 3.2 L (3.4-5.0) g/dL Globulin 3.2 (2.6-4.0) g/dL Albumin/Globulin Ratio 1.0 (0.9-1.6) Urine Color Urine Appearance Urine pH (5.0-8.0) Ur Specific [place] (1.001-1.035) Urine Protein (NEGATIVE) mg/dL Urine Glucose (UA) (NEGATIVE) mg/dL Urine Ketones (NEGATIVE) mg/dL Urine Occult Blood (NEGATIVE) Urine Nitrite (NEGATIVE) Urine Bilirubin (NEGATIVE) Urine Urobilinogen (<2.0) EU/dL Ur Leukocyte Esterase (NEGATIVE) Urine RBC (0-2/HPF) Urine WBC (0-5/HPF) Ur Epithelial Cells (NONE-FEW) Urine Bacteria (NEGATIVE) SARS-CoV-2 RNA (KELLEN) NEGATIVE (NEGATIVE) 04/02/21 04/02/21 04/02/21 Range/Units 21:48 21:48 22:30 WBC (4.0-11.0) K/uL RBC (4.50-5.90) M/uL Hgb (13.0-17.0) g/dL Hct (38.0-50.0) % MCV (80.0-98.0) fL MCH (27.0-32.0) pg MCHC (31.0-37.0) g/dL RDW Std Deviation (28.0-62.0) fl RDW Coeff of Cresencio (11.0-15.0) % Plt Count (150-400) K/uL MPV (7.40-12.00) fL Neut % (Auto) (48.0-80.0) % Lymph % (Auto) (16.0-40.0) % [place] % (Auto) (0.0-15.0) % Eos % (Auto) (0.0-7.0) % Baso % (Auto) (0.0-1.5) % Neut # (Auto) (1.4-5.7) K/uL Lymph # (Auto) (0.6-2.4) K/uL [place] # (Auto) (0.0-0.8) K/uL Eos # (Auto) (0.0-0.7) K/uL Baso # (Auto) (0.0-0.1) K/uL Nucleated RBC % /100WBC Nucleated RBCs # K/uL INR Sodium (136-148) mmol/L Potassium (3.5-5.1) mmol/L Chloride (98-107) mmol/L Carbon Dioxide (21.0-32.0) mmol/L BUN (7.0-18.0) mg/dL Creatinine (0.8-1.3) mg/dL Est Cr Clr Drug Dosing mL/min Estimated GFR (MDRD) ml/min Glucose (74-106) mg/dL Hemoglobin A1c 6.1 (4.5 - 6.2) % Calcium (8.5-10.1) mg/dL Total Bilirubin (0.2-1.0) mg/dL AST (15-37) IU/L ALT (14-63) IU/L Alkaline Phosphatase (46-116) U/L Troponin I < 0.050 (0.000-0.056) ng/mL B-Natriuretic Peptide (<100) PG/ML Total Protein (6.4-8.2) g/dL Albumin (3.4-5.0) g/dL Globulin (2.6-4.0) g/dL Albumin/Globulin Ratio (0.9-1.6) Urine Color YELLOW Urine Appearance CLEAR Urine pH 6.5 (5.0-8.0) Ur Specific [place] 1.015 (1.001-1.035) Urine Protein NEGATIVE (NEGATIVE) mg/dL Urine Glucose (UA) NEGATIVE (NEGATIVE) mg/dL Urine Ketones NEGATIVE (NEGATIVE) mg/dL Urine Occult Blood NEGATIVE (NEGATIVE) Urine Nitrite NEGATIVE (NEGATIVE) Urine Bilirubin NEGATIVE (NEGATIVE) Urine Urobilinogen 0.2 (<2.0) EU/dL Ur Leukocyte Esterase NEGATIVE (NEGATIVE) Urine RBC 0-1 (0-2/HPF) Urine WBC 0-1 (0-5/HPF) Ur Epithelial Cells RARE (NONE-FEW) Urine Bacteria RARE (NEGATIVE) SARS-CoV-2 RNA (KELLEN) (NEGATIVE) 04/03/21 04/03/21 04/03/21 Range/Units 03:33 03:33 03:33 WBC (4.0-11.0) K/uL RBC (4.50-5.90) M/uL Hgb (13.0-17.0) g/dL Hct (38.0-50.0) % MCV (80.0-98.0) fL MCH (27.0-32.0) pg MCHC (31.0-37.0) g/dL RDW Std Deviation (28.0-62.0) fl RDW Coeff of Cresencio (11.0-15.0) % Plt Count (150-400) K/uL MPV (7.40-12.00) fL Neut % (Auto) (48.0-80.0) % Lymph % (Auto) (16.0-40.0) % [place] % (Auto) (0.0-15.0) % Eos % (Auto) (0.0-7.0) % Baso % (Auto) (0.0-1.5) % Neut # (Auto) (1.4-5.7) K/uL Lymph # (Auto) (0.6-2.4) K/uL [place] # (Auto) (0.0-0.8) K/uL Eos # (Auto) (0.0-0.7) K/uL Baso # (Auto) (0.0-0.1) K/uL Nucleated RBC % /100WBC Nucleated RBCs # K/uL INR 1.51 Sodium (136-148) mmol/L Potassium (3.5-5.1) mmol/L Chloride (98-107) mmol/L Carbon Dioxide (21.0-32.0) mmol/L BUN (7.0-18.0) mg/dL Creatinine (0.8-1.3) mg/dL Est Cr Clr Drug Dosing mL/min Estimated GFR (MDRD) ml/min Glucose (74-106) mg/dL Hemoglobin A1c (4.5 - 6.2) % Calcium (8.5-10.1) mg/dL Total Bilirubin (0.2-1.0) mg/dL AST (15-37) IU/L ALT (14-63) IU/L Alkaline Phosphatase (46-116) U/L Troponin I < 0.050 (0.000-0.056) ng/mL B-Natriuretic Peptide 2492 H (<100) PG/ML Total Protein (6.4-8.2) g/dL Albumin (3.4-5.0) g/dL Globulin (2.6-4.0) g/dL Albumin/Globulin Ratio (0.9-1.6) Urine Color Urine Appearance Urine pH (5.0-8.0) Ur Specific [place] (1.001-1.035) Urine Protein (NEGATIVE) mg/dL Urine Glucose (UA) (NEGATIVE) mg/dL Urine Ketones (NEGATIVE) mg/dL Urine Occult Blood (NEGATIVE) Urine Nitrite (NEGATIVE) Urine Bilirubin (NEGATIVE) Urine Urobilinogen (<2.0) EU/dL Ur Leukocyte Esterase (NEGATIVE) Urine RBC (0-2/HPF) Urine WBC (0-5/HPF) Ur Epithelial Cells (NONE-FEW) Urine Bacteria (NEGATIVE) SARS-CoV-2 RNA (KELLEN) (NEGATIVE) 04/03/21 04/03/21 Range/Units 03:33 03:33 WBC 7.54 (4.0-11.0) K/uL RBC 5.23 (4.50-5.90) M/uL Hgb 15.2 (13.0-17.0) g/dL Hct 45.0 (38.0-50.0) % MCV 86.0 (80.0-98.0) fL MCH 29.1 (27.0-32.0) pg MCHC 33.8 (31.0-37.0) g/dL RDW Std Deviation 48.9 (28.0-62.0) fl RDW Coeff of Cresencio 16 H (11.0-15.0) % Plt Count 212 (150-400) K/uL MPV 9.90 (7.40-12.00) fL Neut % (Auto) 69.2 (48.0-80.0) % Lymph % (Auto) 21.5 (16.0-40.0) % [place] % (Auto) 6.6 (0.0-15.0) % Eos % (Auto) 2.4 (0.0-7.0) % Baso % (Auto) 0.3 (0.0-1.5) % Neut # (Auto) 5.2 (1.4-5.7) K/uL Lymph # (Auto) 1.6 (0.6-2.4) K/uL [place] # (Auto) 0.5 (0.0-0.8) K/uL Eos # (Auto) 0.2 (0.0-0.7) K/uL Baso # (Auto) 0.0 (0.0-0.1) K/uL Nucleated RBC % 0.0 /100WBC Nucleated RBCs # 0 K/uL INR Sodium 144 (136-148) mmol/L Potassium 3.6 (3.5-5.1) mmol/L Chloride 107 (98-107) mmol/L Carbon Dioxide 26.1 (21.0-32.0) mmol/L BUN 16 (7.0-18.0) mg/dL Creatinine 0.9 (0.8-1.3) mg/dL Est Cr Clr Drug Dosing 113.44 mL/min Estimated GFR (MDRD) > 60.0 ml/min Glucose 90 (74-106) mg/dL Hemoglobin A1c (4.5 - 6.2) % Calcium 8.6 (8.5-10.1) mg/dL Total Bilirubin (0.2-1.0) mg/dL AST (15-37) IU/L ALT (14-63) IU/L Alkaline Phosphatase (46-116) U/L Troponin I (0.000-0.056) ng/mL B-Natriuretic Peptide (<100) PG/ML Total Protein (6.4-8.2) g/dL Albumin (3.4-5.0) g/dL Globulin (2.6-4.0) g/dL Albumin/Globulin Ratio (0.9-1.6) Urine Color Urine Appearance Urine pH (5.0-8.0) Ur Specific [place] (1.001-1.035) Urine Protein (NEGATIVE) mg/dL Urine Glucose (UA) (NEGATIVE) mg/dL Urine Ketones (NEGATIVE) mg/dL Urine Occult Blood (NEGATIVE) Urine Nitrite (NEGATIVE) Urine Bilirubin (NEGATIVE) Urine Urobilinogen (<2.0) EU/dL Ur Leukocyte Esterase (NEGATIVE) Urine RBC (0-2/HPF) Urine WBC (0-5/HPF) Ur Epithelial Cells (NONE-FEW) Urine Bacteria (NEGATIVE) SARS-CoV-2 RNA (KELLEN) (NEGATIVE) Result Diagrams: 04/03/21 03:33 04/03/21 03:33 Sepsis Event Note - Evaluation Sepsis Screening Result: No Definite Risk - Focused Exam Vital Signs: Vital Signs Temp Pulse Resp BP Pulse Ox 04/03/21 08:00 35.9 C L 96 20 142/101 H 97 04/03/21 03:38 36.5 C 99 18 145/95 H 90 L 04/02/21 23:34 36.2 C 104 H 17 143/110 H 98 04/02/21 23:00 107 H 91 L - Problem List Review Problem List Initiated/Reviewed/Updated: Yes - My Orders Last 24 Hours: My Active Orders 04/02/21 Dinner Heart Healthy Diet [DIET] 04/02/21 17:50 Telemetry Monitoring [Cardiac Monitoring] [RC] Q8H 04/02/21 22:34 Patient Status [ADT] Routine Oxygen Therapy [RC] PRN Up ad Mona [RC] ASDIRECTED VTE/DVT Education [RC] PER UNIT ROUTINE Vital Signs [RC] Q4H Resuscitation Status Routine 04/02/21 22:35 Antiembolic Devices [RC] PER UNIT ROUTINE Sequential Compression Device [OM.PC] Per Unit Routine 04/02/21 22:45 Enoxaparin [Lovenox] 40 mg SUBCUT Q24H 04/03/21 Breakfast Fluid Restriction [DIET] 04/03/21 09:00 Furosemide [Lasix] 40 mg IVPUSH BID 04/03/21 09:32 TROPONIN I [CHEM] Q6H 04/04/21 05:11 CBC WITH AUTO DIFF [HEME] AM COMPREHENSIVE METABOLIC PN,CMP [CHEM] AM MAGNESIUM [CHEM] AM - Plan Plan:: 50 yo male admitted for new onset CHF. CHF: continue lasix 40mg IV BID, daily weights, fluid restrict 1.8 L. Echocardiogram pending.
[2021-04-03] MEDS: Furosemide 40 MG/4 ML VIAL IVPUSH SCH ×2 (12:18→21:02)
[2021-04-03] MEDS: Enoxaparin 40 MG/0.4 ML Syringe SUBCUT SCH (23:25)
[2021-04-04 07:48] LABS: BLOOD UREA NITROGEN,BUN 18 mg/dL (7.0-18.0); CARBON DIOXIDE,CO2 25.7 mmol/L (21.0-32.0); CHLORIDE,CL 103 mmol/L (98-107); GLUCOSE RANDOM 90 mg/dL (74-106); POTASSIUM,K 3.8 mmol/L (3.5-5.1); SODIUM,NA 144 mmol/L (136-148)
[2021-04-04] MEDS: Furosemide 40 MG/4 ML VIAL IVPUSH SCH ×2 (08:32→20:05)
--- NOTE | 2021-04-04 09:43 | PCM.PN ---
- General Info Date of Service: 04/04/21 - Review of Systems Systems Review Comment:: feeling better, breathing has improved - Patient Data Vitals - Most Recent: Last Vital Signs Temp 35.7 C L 04/04/21 08:26 Pulse 95 04/04/21 08:26 Resp 15 04/04/21 08:26 BP 149/117 H 04/04/21 08:26 Pulse Ox 95 04/04/21 08:26 Weight - Most Recent: 105.8 kg I&O - Last 24 Hours: Intake & Output 04/03/21 04/04/21 04/04/21 22:59 06:59 14:59 Intake Total 910 700 Output Total 2050 2400 Balance -1140 -1700 Lab Results Last 24 Hours: Laboratory Results - last 24 hr 04/03/21 04/04/21 04/04/21 Range/Units 10:21 06:48 06:48 WBC 6.66 (4.0-11.0) K/uL RBC 5.27 (4.50-5.90) M/uL Hgb 14.9 (13.0-17.0) g/dL Hct 44.6 (38.0-50.0) % MCV 84.6 (80.0-98.0) fL MCH 28.3 (27.0-32.0) pg MCHC 33.4 (31.0-37.0) g/dL RDW Std Deviation 47.5 (28.0-62.0) fl RDW Coeff of Cresencio 15 (11.0-15.0) % Plt Count 224 (150-400) K/uL MPV 11.00 (7.40-12.00) fL Neut % (Auto) 70.7 (48.0-80.0) % Lymph % (Auto) 18.9 (16.0-40.0) % Blair % (Auto) 8.6 (0.0-15.0) % Eos % (Auto) 1.5 (0.0-7.0) % Baso % (Auto) 0.3 (0.0-1.5) % Neut # (Auto) 4.7 (1.4-5.7) K/uL Lymph # (Auto) 1.3 (0.6-2.4) K/uL Blair # (Auto) 0.6 (0.0-0.8) K/uL Eos # (Auto) 0.1 (0.0-0.7) K/uL Baso # (Auto) 0.0 (0.0-0.1) K/uL Nucleated RBC % 0.0 /100WBC Nucleated RBCs # 0 K/uL Sodium 144 (136-148) mmol/L Potassium 3.8 (3.5-5.1) mmol/L Chloride 103 (98-107) mmol/L Carbon Dioxide 25.7 (21.0-32.0) mmol/L BUN 18 (7.0-18.0) mg/dL Creatinine 1.0 (0.8-1.3) mg/dL Est Cr Clr Drug Dosing 102.09 mL/min Estimated GFR (MDRD) > 60.0 ml/min Glucose 90 (74-106) mg/dL Calcium 8.8 (8.5-10.1) mg/dL Magnesium 1.8 (1.8-2.4) mg/dL Total Bilirubin 1.6 H (0.2-1.0) mg/dL AST 18 (15-37) IU/L ALT 27 (14-63) IU/L Alkaline Phosphatase 78 (46-116) U/L Troponin I < 0.050 (0.000-0.056) ng/mL Total Protein 6.3 L (6.4-8.2) g/dL Albumin 3.3 L (3.4-5.0) g/dL Globulin 3.0 (2.6-4.0) g/dL Albumin/Globulin Ratio 1.1 (0.9-1.6) Med Orders - Current: Current Medications Carvedilol (Carvedilol 3.125 Mg Tab) 3.125 mg PO BID [facility] Enoxaparin Sodium (Enoxaparin 40 Mg/0.4 Ml Syringe) 40 mg SUBCUT Q24H [facility] [place] Last Admin: 04/03/21 23:25 Dose: 40 mg Documented by: Furosemide (Furosemide 40 Mg/4 Ml Vial) 40 mg IVPUSH BID [facility] [place] Last Admin: 04/04/21 08:32 Dose: 40 mg Documented by: Discontinued Medications Furosemide (Furosemide 40 Mg/4 Ml Vial) 40 mg IVPUSH ONETIME ONE Stop: 04/02/21 18:46 Last Admin: 04/02/21 19:22 Dose: 40 mg Documented by: Potassium Chloride (Potassium Chloride 20 Meq Tab.Er) 40 meq PO ONETIME ONE Stop: 04/03/21 06:56 Last Admin: 04/03/21 12:18 Dose: Not Given Documented by: - Exam General: Alert, Oriented Neck: Supple Lungs: Clear to Auscultation, Normal Respiratory Effort Cardiovascular: Regular Rate, Regular Rhythm GI/Abdominal Exam: Normal Bowel Sounds, Soft, Non-Tender Extremities: Non-Tender, No Pedal Edema Skin: Warm, Dry, Intact Neurological: No New Focal Deficit - Patient Data Lab Results Last 24 hrs: Laboratory Results - last 24 hr 04/03/21 04/04/21 04/04/21 Range/Units 10:21 06:48 06:48 WBC 6.66 (4.0-11.0) K/uL RBC 5.27 (4.50-5.90) M/uL Hgb 14.9 (13.0-17.0) g/dL Hct 44.6 (38.0-50.0) % MCV 84.6 (80.0-98.0) fL MCH 28.3 (27.0-32.0) pg MCHC 33.4 (31.0-37.0) g/dL RDW Std Deviation 47.5 (28.0-62.0) fl RDW Coeff of Cresencio 15 (11.0-15.0) % Plt Count 224 (150-400) K/uL MPV 11.00 (7.40-12.00) fL Neut % (Auto) 70.7 (48.0-80.0) % Lymph % (Auto) 18.9 (16.0-40.0) % Blair % (Auto) 8.6 (0.0-15.0) % Eos % (Auto) 1.5 (0.0-7.0) % Baso % (Auto) 0.3 (0.0-1.5) % Neut # (Auto) 4.7 (1.4-5.7) K/uL Lymph # (Auto) 1.3 (0.6-2.4) K/uL Blair # (Auto) 0.6 (0.0-0.8) K/uL Eos # (Auto) 0.1 (0.0-0.7) K/uL Baso # (Auto) 0.0 (0.0-0.1) K/uL Nucleated RBC % 0.0 /100WBC Nucleated RBCs # 0 K/uL Sodium 144 (136-148) mmol/L Potassium 3.8 (3.5-5.1) mmol/L Chloride 103 (98-107) mmol/L Carbon Dioxide 25.7 (21.0-32.0) mmol/L BUN 18 (7.0-18.0) mg/dL Creatinine 1.0 (0.8-1.3) mg/dL Est Cr Clr Drug Dosing 102.09 mL/min Estimated GFR (MDRD) > 60.0 ml/min Glucose 90 (74-106) mg/dL Calcium 8.8 (8.5-10.1) mg/dL Magnesium 1.8 (1.8-2.4) mg/dL Total Bilirubin 1.6 H (0.2-1.0) mg/dL AST 18 (15-37) IU/L ALT 27 (14-63) IU/L Alkaline Phosphatase 78 (46-116) U/L Troponin I < 0.050 (0.000-0.056) ng/mL Total Protein 6.3 L (6.4-8.2) g/dL Albumin 3.3 L (3.4-5.0) g/dL Globulin 3.0 (2.6-4.0) g/dL Albumin/Globulin Ratio 1.1 (0.9-1.6) Result Diagrams: 04/04/21 06:48 04/04/21 06:48 Sepsis Event Note - Evaluation Sepsis Screening Result: No Definite Risk - Focused Exam Vital Signs: Vital Signs Temp Pulse Resp BP Pulse Ox 04/04/21 08:26 35.7 C L 95 15 149/117 H 95 04/04/21 04:21 35.8 C L 98 16 154/115 H 96 04/03/21 23:24 35.9 C L 98 17 146/112 H 95 - Problem List Review Problem List Initiated/Reviewed/Updated: Yes - My Orders Last 24 Hours: My Active Orders 04/03/21 09:00 Furosemide [Lasix] 40 mg IVPUSH BID 04/04/21 09:45 carvediloL [Coreg] 3.125 mg PO BID - Plan Plan:: 50 yo male admitted for new onset CHF. CHF: continue lasix 40mg IV BID, daily weights, fluid restrict 1.8 L. Echocardiogram shows EF of 20%. Will start carvedilol.
[2021-04-04] MEDS ORDERED: Potassium Chloride 20 MEQ Tab.ER PO ONE ×2 (09:44→10:15)
[2021-04-04] MEDS: Carvedilol 3.125 MG Tab PO SCH ×2 (10:48→20:05)
[2021-04-04] MEDS: Enoxaparin 40 MG/0.4 ML Syringe SUBCUT SCH (23:31)
[2021-04-05 07:19] LABS: BLOOD UREA NITROGEN,BUN 20 mg/dL (7.0-18.0); CARBON DIOXIDE,CO2 26.5 mmol/L (21.0-32.0); CHLORIDE,CL 105 mmol/L (98-107); GLUCOSE RANDOM 90 mg/dL (74-106); POTASSIUM,K 3.9 mmol/L (3.5-5.1); SODIUM,NA 142 mmol/L (136-148)
[2021-04-05] MEDS: Furosemide 40 MG/4 ML VIAL IVPUSH SCH ×2 (08:45→20:10)
[2021-04-05] MEDS: Carvedilol 3.125 MG Tab PO SCH ×2 (08:45→20:10)
--- NOTE | 2021-04-05 13:13 | PCM.PN ---
- General Info Date of Service: 04/05/21 - Review of Systems Systems Review Comment:: feeling better, shortness of breath improving - Patient Data Vitals - Most Recent: Last Vital Signs Temp 36.0 C L 04/05/21 12:16 Pulse 88 04/05/21 12:16 Resp 16 04/05/21 12:16 BP 136/105 H 04/05/21 12:16 Pulse Ox 97 04/05/21 12:16 Weight - Most Recent: 102.1 kg I&O - Last 24 Hours: Intake & Output 04/04/21 04/05/21 04/05/21 22:59 06:59 14:59 Intake Total 545 500 Output Total 9438 7975 Balance -1550 -1225 Lab Results Last 24 Hours: Laboratory Results - last 24 hr 04/05/21 04/05/21 Range/Units 06:40 06:40 WBC 6.34 (4.0-11.0) K/uL RBC 5.28 (4.50-5.90) M/uL Hgb 14.8 (13.0-17.0) g/dL Hct 44.8 (38.0-50.0) % MCV 84.8 (80.0-98.0) fL MCH 28.0 (27.0-32.0) pg MCHC 33.0 (31.0-37.0) g/dL RDW Std Deviation 47.7 (28.0-62.0) fl RDW Coeff of Cresencio 15 (11.0-15.0) % Plt Count 222 (150-400) K/uL MPV 10.50 (7.40-12.00) fL Neut % (Auto) 67.5 (48.0-80.0) % Lymph % (Auto) 21.9 (16.0-40.0) % Webster % (Auto) 8.2 (0.0-15.0) % Eos % (Auto) 1.9 (0.0-7.0) % Baso % (Auto) 0.5 (0.0-1.5) % Neut # (Auto) 4.3 (1.4-5.7) K/uL Lymph # (Auto) 1.4 (0.6-2.4) K/uL Webster # (Auto) 0.5 (0.0-0.8) K/uL Eos # (Auto) 0.1 (0.0-0.7) K/uL Baso # (Auto) 0.0 (0.0-0.1) K/uL Nucleated RBC % 0.0 /100WBC Nucleated RBCs # 0 K/uL Sodium 142 (136-148) mmol/L Potassium 3.9 (3.5-5.1) mmol/L Chloride 105 (98-107) mmol/L Carbon Dioxide 26.5 (21.0-32.0) mmol/L BUN 20 H (7.0-18.0) mg/dL Creatinine 1.1 (0.8-1.3) mg/dL Est Cr Clr Drug Dosing 92.81 mL/min Estimated GFR (MDRD) > 60.0 ml/min Glucose 90 (74-106) mg/dL Calcium 8.7 (8.5-10.1) mg/dL Magnesium 1.8 (1.8-2.4) mg/dL Med Orders - Current: Current Medications Carvedilol (Carvedilol 3.125 Mg Tab) 3.125 mg PO BID [facility] Last Admin: 04/05/21 08:45 Dose: 3.125 mg Documented by: Enoxaparin Sodium (Enoxaparin 40 Mg/0.4 Ml Syringe) 40 mg SUBCUT Q24H [facility] Last Admin: 04/04/21 23:31 Dose: 40 mg Documented by: Furosemide (Furosemide 40 Mg/4 Ml Vial) 40 mg IVPUSH BID [facility] Last Admin: 04/05/21 08:45 Dose: 40 mg Documented by: Lisinopril (Lisinopril 5 Mg Tab) 5 mg PO DAILY [facility] Spironolactone (Spironolactone 25 Mg Tab) 12.5 mg PO DAILY [facility] Discontinued Medications Furosemide (Furosemide 40 Mg/4 Ml Vial) 40 mg IVPUSH ONETIME ONE Stop: 04/02/21 18:46 Last Admin: 04/02/21 19:22 Dose: 40 mg Documented by: Potassium Chloride (Potassium Chloride 20 Meq Tab.Er) 40 meq PO ONETIME ONE Stop: 04/03/21 06:56 Last Admin: 04/03/21 12:18 Dose: Not Given Documented by: Potassium Chloride (Potassium Chloride 20 Meq Tab.Er) 40 meq PO ONETIME ONE Stop: 04/04/21 09:45 Potassium Chloride (Potassium Chloride 20 Meq Tab.Er) 20 meq PO ONETIME ONE Stop: 04/04/21 10:16 Last Admin: 04/04/21 10:48 Dose: 20 meq Documented by: - Exam General: Alert, Oriented Neck: Supple Lungs: Clear to Auscultation, Normal Respiratory Effort Cardiovascular: Regular Rate, Regular Rhythm GI/Abdominal Exam: Soft, Non-Tender, No Distention Extremities: Non-Tender, Pedal Edema (+2) Skin: Warm, Dry, Intact Neurological: No New Focal Deficit - Patient Data Lab Results Last 24 hrs: Laboratory Results - last 24 hr 04/05/21 04/05/21 Range/Units 06:40 06:40 WBC 6.34 (4.0-11.0) K/uL RBC 5.28 (4.50-5.90) M/uL Hgb 14.8 (13.0-17.0) g/dL Hct 44.8 (38.0-50.0) % MCV 84.8 (80.0-98.0) fL MCH 28.0 (27.0-32.0) pg MCHC 33.0 (31.0-37.0) g/dL RDW Std Deviation 47.7 (28.0-62.0) fl RDW Coeff of Cresencio 15 (11.0-15.0) % Plt Count 222 (150-400) K/uL MPV 10.50 (7.40-12.00) fL Neut % (Auto) 67.5 (48.0-80.0) % Lymph % (Auto) 21.9 (16.0-40.0) % Webster % (Auto) 8.2 (0.0-15.0) % Eos % (Auto) 1.9 (0.0-7.0) % Baso % (Auto) 0.5 (0.0-1.5) % Neut # (Auto) 4.3 (1.4-5.7) K/uL Lymph # (Auto) 1.4 (0.6-2.4) K/uL Webster # (Auto) 0.5 (0.0-0.8) K/uL Eos # (Auto) 0.1 (0.0-0.7) K/uL Baso # (Auto) 0.0 (0.0-0.1) K/uL Nucleated RBC % 0.0 /100WBC Nucleated RBCs # 0 K/uL Sodium 142 (136-148) mmol/L Potassium 3.9 (3.5-5.1) mmol/L Chloride 105 (98-107) mmol/L Carbon Dioxide 26.5 (21.0-32.0) mmol/L BUN 20 H (7.0-18.0) mg/dL Creatinine 1.1 (0.8-1.3) mg/dL Est Cr Clr Drug Dosing 92.81 mL/min Estimated GFR (MDRD) > 60.0 ml/min Glucose 90 (74-106) mg/dL Calcium 8.7 (8.5-10.1) mg/dL Magnesium 1.8 (1.8-2.4) mg/dL Result Diagrams: 04/05/21 06:40 04/05/21 06:40 Sepsis Event Note - Evaluation Sepsis Screening Result: No Definite Risk - Focused Exam Vital Signs: Vital Signs Temp Pulse Pulse Resp BP BP Pulse Ox 04/05/21 12:16 36.0 C L 88 16 136/105 H 97 04/05/21 08:45 92 149/118 H 04/05/21 08:44 36.1 C 92 15 149/118 H 94 L 04/05/21 04:34 36.1 C 92 16 141/109 H 92 L - Problem List Review Problem List Initiated/Reviewed/Updated: Yes - My Orders Last 24 Hours: My Active Orders 04/05/21 13:15 Spironolactone [Aldactone] 12.5 mg PO DAILY lisinopriL [Prinivil] 5 mg PO DAILY 04/06/21 05:11 BASIC METABOLIC PANEL,BMP [CHEM] AM CBC WITH AUTO DIFF [HEME] AM MAGNESIUM [CHEM] AM - Plan Plan:: 50 yo male admitted for new onset CHF. CHF: continue lasix 40mg IV BID, daily weights, fluid restrict 1.8 L. Echocardiogram shows EF of 20%. Conitnue carvedilol. Will start lisinopril and spironolactone.
[2021-04-05] MEDS: Lisinopril 5 MG Tab PO SCH (14:15)
[2021-04-05] MEDS: Spironolactone 25 MG Tab PO SCH (14:15)
[2021-04-05] MEDS: Enoxaparin 40 MG/0.4 ML Syringe SUBCUT SCH (23:41)
[2021-04-06 06:15] LABS: BLOOD UREA NITROGEN,BUN 22 mg/dL (7.0-18.0); CARBON DIOXIDE,CO2 26.5 mmol/L (21.0-32.0); CHLORIDE,CL 104 mmol/L (98-107); GLUCOSE RANDOM 84 mg/dL (74-106); POTASSIUM,K 3.9 mmol/L (3.5-5.1); SODIUM,NA 141 mmol/L (136-148)
[2021-04-06] MEDS: Furosemide 40 MG/4 ML VIAL IVPUSH SCH (09:51)
[2021-04-06] MEDS: Spironolactone 25 MG Tab PO SCH (09:53)
[2021-04-06] MEDS: Lisinopril 5 MG Tab PO SCH (09:55)
[2021-04-06] MEDS: Carvedilol 3.125 MG Tab PO SCH (09:55)
[2021-04-06] MEDS ORDERED: Aspirin 81 MG Tab.Chew PO SCH (10:30)
--- NOTE | 2021-04-06 13:29 | PCM.DCSUM1 ---
Discharge Summary - Hospital Course Brief History: 50 yo male who presents with one month history of shortness of breath, leg edema, weight gain, and orthopnea. Patient states he is unable to get his work boots on anymore. He did have a cholecystectomy last month but symptoms started before the surgery. He called Dr. Bell and he gave him lasix but was unable to book an appointment with him. He went to the ED yesterday who referred him to Dr. Muñiz who after seeing in clinic today referred him for admission. 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 - Discharge Data Discharge Date: 04/06/21 Discharge Disposition: Home, Self-Care 01 Condition: Good - Referral to Home Health Primary Care Physician: PCP None - Discharge Diagnosis/Problem(s) (1) HTN (hypertension) SNOMED Code(s): 80035051 ICD Code: I10 - ESSENTIAL (PRIMARY) HYPERTENSION Status: Acute Current Visit: Yes (2) Systolic heart failure SNOMED Code(s): 420415842 ICD Code: I50.20 - UNSPECIFIED SYSTOLIC (CONGESTIVE) HEART FAILURE Status: Acute Current Visit: Yes Qualifiers: Heart failure chronicity: acute Qualified Code(s): I50.21 - Acute systolic (congestive) heart failure - Patient Summary/Data Hospital Course: This 50-year-old male was admitted secondary to 1 month history of shortness of breath, leg edema, weight gain and orthopnea. He was directly admitted from Dr. Stewart's clinic for acute onset CHF. Patient was started on aggressive regimen of diuresis including Lasix 40 mg IV twice daily. He was monitored daily and kept on strict I's and O's with 1.8 L fluid restriction. Patient started at 111 kg and today is now 98 kg. Patient is breathing much easier and peripheral edema has improved significantly. Echo completed reveals EF 20%. Patient was then started on carvedilol 3.125 mg twice daily along with lisinopril 5 mg and spironolactone 12.5 mg. Patient has tolerated these medications well. Today blood pressure remains slightly elevated 130s over 90s. I spoke with Dr. Mary regarding goals of care to reach discharge. He feels patient has lost significant amount of weight and has likely diuresed well. He recommends discharge home but would increase lisinopril to 10 mg daily. He currently is working on ischemic work-up done in [place] and contact patient himself regarding appointment date and time. Patient was counseled heavily on low-sodium diet and heart healthy diet to help monitor and keep weight down along with fluid retention down. He verbalized information well. Patient also counseled on medications given side effects and items to monitor for. He was counseled on monitoring weight daily keeping a log and noting if any weight gain of 2 to 3 pounds in 3 to 5 days he should be contacting PCP and/or Dr. Mary regarding increasing Lasix for short period of time. Patient was also counseled on smoking cessation greater than 10 minutes. Patient will be given [place] quit line information. He has been without tobacco products during his entire admission and feels very motivated about keeping away from these. Patient concerns and questions addressed. [employer] information was given to him by Dr. Stewart. He is to follow-up with PCP in 1 week [address] Stewart who will be reaching out to them regarding further cardiac/ischemic work-up in [place]. He is return to the ER clinic if concerns should arise sooner. He is to monitor for chest pain worsening edema and shortness of breath and to seek evaluation quickly if they should occur. - Patient Instructions Diet: Heart Healthy Diet, Low Sodium Fluid Restriction: 2000 mL Activity: No Strenuous Activities (Until cardiac work-up completed) Showering/Bathing: May Shower Notify Provider of: Fever, Increased Pain, Swelling and Redness, Drainage, Nausea and/or Vomiting Other/Special Instructions: Monitor weight daily, keep log if you notice weight increasing by 2 to 3 pounds in 3 to 5 days please contact nib assembler or primary care as you may need to increase in Lasix. If you experience chest pain please seek medical attention for evaluation quickly. Dr. Stewart will be in contact with you regarding cardiac work-up to be completed in [place]. Please provide [place] Quit line number - Discharge Plan *PRESCRIPTION DRUG MONITORING PROGRAM REVIEWED*: Not Applicable *COPY OF PRESCRIPTION DRUG MONITORING REPORT IN PATIENT CYNDI: Not Applicable Prescriptions/Med Rec: Spironolactone [Aldactone] 12.5 mg PO DAILY #30 tablet Aspirin 81 mg PO DAILY #30 tab.chew carvediloL [Coreg] 3.125 mg PO BID #60 tablet Furosemide [Lasix] 40 mg PO BID #60 tab lisinopriL [Lisinopril] 10 mg PO DAILY #30 tablet Home Medications: Home Meds Hydrocodone/Acetaminophen [HYDROcodone-Acetaminophen 5-325 MG] 1 - 2 each PO Q6HR PRN #25 tab 02/27/21 [Rx] Aspirin 81 mg PO DAILY #30 tab.chew 04/06/21 [Rx] Furosemide [Lasix] 40 mg PO BID #60 tab 04/06/21 [Rx] Spironolactone [Aldactone] 12.5 mg PO DAILY #30 tablet 04/06/21 [Rx] carvediloL [Coreg] 3.125 mg PO BID #60 tablet 04/06/21 [Rx] lisinopriL [Lisinopril] 10 mg PO DAILY #30 tablet 04/06/21 [Rx] Oxygen Therapy Mode: Room Air Patient Handouts: Steps to Quit Smoking, [id number], Coping with Quitting Smoking, Fluid Restriction, Hypertension, Adult, [id number], Low-Sodium Eating Plan, Heart Failure, Diagnosis, [id number], Heart Failure Eating Plan Referrals: Colleen Stewart MD [Physician] - 04/21/21 2:30 pm Hudson Bell MD [Physician] - 04/14/21 9:30 am - Discharge Summary/Plan Comment DC Time >30 min.: No - Patient Data Vitals - Most Recent: Last Vital Signs Temp 96.9 F 04/06/21 08:00 Pulse 95 04/06/21 09:55 Resp 16 04/06/21 08:00 BP 134/96 H 04/06/21 09:55 Pulse Ox 96 04/06/21 08:00 Weight - Most Recent: 98.2 kg I&O - Last 24 hours: Intake & Output 04/05/21 04/06/21 04/06/21 22:59 06:59 14:59 Intake Total 745 450 Output Total 1305 1600 Balance -560 -1150 Lab Results - Last 24 hrs: Laboratory Results - last 24 hr 04/06/21 04/06/21 04/06/21 Range/Units 05:15 05:15 05:15 WBC 6.56 (4.0-11.0) K/uL RBC 5.29 (4.50-5.90) M/uL Hgb 15.1 (13.0-17.0) g/dL Hct 45.0 (38.0-50.0) % MCV 85.1 (80.0-98.0) fL MCH 28.5 (27.0-32.0) pg MCHC 33.6 (31.0-37.0) g/dL RDW Std Deviation 47.4 (28.0-62.0) fl RDW Coeff of Cresencio 15 (11.0-15.0) % Plt Count 213 (150-400) K/uL MPV 10.90 (7.40-12.00) fL Neut % (Auto) 63.1 (48.0-80.0) % Lymph % (Auto) 26.4 (16.0-40.0) % Webster % (Auto) 8.2 (0.0-15.0) % Eos % (Auto) 1.7 (0.0-7.0) % Baso % (Auto) 0.6 (0.0-1.5) % Neut # (Auto) 4.1 (1.4-5.7) K/uL Lymph # (Auto) 1.7 (0.6-2.4) K/uL Webster # (Auto) 0.5 (0.0-0.8) K/uL Eos # (Auto) 0.1 (0.0-0.7) K/uL Baso # (Auto) 0.0 (0.0-0.1) K/uL Nucleated RBC % 0.0 /100WBC Nucleated RBCs # 0 K/uL Sodium 141 (136-148) mmol/L Potassium 3.9 (3.5-5.1) mmol/L Chloride 104 (98-107) mmol/L Carbon Dioxide 26.5 (21.0-32.0) mmol/L BUN 22 H (7.0-18.0) mg/dL Creatinine 1.2 (0.8-1.3) mg/dL Est Cr Clr Drug Dosing 85.08 mL/min Estimated GFR (MDRD) > 60.0 ml/min Glucose 84 (74-106) mg/dL Calcium 8.8 (8.5-10.1) mg/dL Magnesium 1.9 (1.8-2.4) mg/dL Triglycerides 59 (0-200) mg/dL Cholesterol 131 (50-200) mg/dL LDL Cholesterol, Calc 83 (60-180) mg/dL VLDL Cholesterol 11 (5-55) mg/dL HDL Cholesterol 36 L (40-60) mg/dL Cholesterol/HDL Ratio 3.6 (3.3-6.0) Med Orders - Current: Current Medications Aspirin (Aspirin 81 Mg Tab.Chew) 81 mg PO DAILY [facility] Last Admin: 04/06/21 11:35 Dose: 81 mg Documented by: Carvedilol (Carvedilol 3.125 Mg Tab) 3.125 mg PO BID [facility] Last Admin: 04/06/21 09:55 Dose: 3.125 mg Documented by: Enoxaparin Sodium (Enoxaparin 40 Mg/0.4 Ml Syringe) 40 mg SUBCUT Q24H [facility] Last Admin: 04/05/21 23:41 Dose: 40 mg Documented by: Furosemide (Furosemide 40 Mg/4 Ml Vial) 40 mg IVPUSH BID [facility] Last Admin: 04/06/21 09:51 Dose: 40 mg Documented by: Lisinopril (Lisinopril 5 Mg Tab) 5 mg PO DAILY [facility] Last Admin: 04/06/21 09:55 Dose: 5 mg Documented by: Spironolactone (Spironolactone 25 Mg Tab) 12.5 mg PO DAILY [facility] Last Admin: 04/06/21 09:53 Dose: 12.5 mg Documented by: Discontinued Medications Furosemide (Furosemide 40 Mg/4 Ml Vial) 40 mg IVPUSH ONETIME ONE Stop: 04/02/21 18:46 Last Admin: 04/02/21 19:22 Dose: 40 mg Documented by: Potassium Chloride (Potassium Chloride 20 Meq Tab.Er) 40 meq PO ONETIME ONE Stop: 04/03/21 06:56 Last Admin: 04/03/21 12:18 Dose: Not Given Documented by: Potassium Chloride (Potassium Chloride 20 Meq Tab.Er) 40 meq PO ONETIME ONE Stop: 04/04/21 09:45 Potassium Chloride (Potassium Chloride 20 Meq Tab.Er) 20 meq PO ONETIME ONE Stop: 04/04/21 10:16 Last Admin: 04/04/21 10:48 Dose: 20 meq Documented by:
--- NOTE | 2021-04-08 15:54 | ECHO ---
The echocardiogram report can be seen in this patient's EMR (Electronic Medical Record) in the Reports section. The report has also been scanned into PACS. ELÍAS
== END 2021-04-06 15:10 | disposition home or self-care (01) | DRG 291 ==
LOC: MW.MS 16:24
PROVIDERS: ADMIT Internal Medicine; ATTEND Internal Medicine
DX: I11.0 Hypertensive heart disease with heart failure (principal); I50.21 Acute systolic (congestive) heart failure; F17.210 Nicotine dependence, cigarettes, uncomplicated; F15.10 Other stimulant abuse, uncomplicated; H54.7 Unspecified visual loss; K21.9 Gastro-esophageal reflux disease without esophagitis; E66.9 Obesity, unspecified; G47.30 Sleep apnea, unspecified; Z20.822 Contact with and (suspected) exposure to COVID-19; Z90.49 Acquired absence of other specified parts of digestive tract; Z79.82 Long term (current) use of aspirin; Z79.899 Other long term (current) drug therapy; Z98.890 Other specified postprocedural states
CPT/HCPCS: 36415; 80048; 80053; 80061; 81001; 83036; 83735; 83880; 84484; 85025; 85610; 93306; A9270-GY; J1650; J1940; U0002

== ENCOUNTER 2022-01-09 10:02 | Emergency (ER) | payer BC ==
[2022-01-09] MEDS ORDERED: Sodium Chloride 0.9% 10 ML Syringe FLUSH PRN (10:23)
[2022-01-09] MEDS ORDERED: Sodium Chloride 0.9% 2.5 ML Syringe FLUSH PRN (10:23)
[2022-01-09] MEDS ORDERED: Ondansetron 4 MG/2 ML SDV IVPUSH ONE (10:41)
[2022-01-09] MEDS ORDERED: Ketorolac 30 MG/ML SDV IVPUSH ONE (10:41)
[2022-01-09] MEDS ORDERED: Sodium Chloride 0.9% 1,000 ML IV ONE (10:41)
[2022-01-09] MEDS ORDERED: HYDROmorphone 1 MG/ML Syringe IVPUSH ONE (10:41)
[2022-01-09 10:55] LABS: CARBON DIOXIDE,CO2 28.7 mmol/L (21.0-32.0); POTASSIUM,K 4.6 mmol/L (3.5-5.1)
[2022-01-09] MEDS ORDERED: Iopamidol 755 MG/ML 500 ML Multipack Bottle IVPUSH ONE (18:20)
== END 2022-01-09 12:17 | disposition home or self-care (01) ==
LOC: MW.ED 10:02
DX: N17.9 Acute kidney failure, unspecified (principal); N13.2 Hydronephrosis with renal and ureteral calculous obstruction; I10 Essential (primary) hypertension; E66.9 Obesity, unspecified; Z68.31 Body mass index [BMI] 31.0-31.9, adult; Z90.49 Acquired absence of other specified parts of digestive tract
CPT/HCPCS: 36415; 74177; 80053; 81001; 83690; 85025; 96374; 96375; 99284; J1170; J1885; J2405; J3490; J7030; Q9967; 99283

== ENCOUNTER 2022-09-03 08:30 | Emergency (ER) | payer SELFPAY ==
[2022-09-03] MEDS ORDERED: Sodium Chloride 0.9% 2.5 ML Syringe FLUSH PRN (08:42)
[2022-09-03] MEDS ORDERED: Sodium Chloride 0.9% 10 ML Syringe FLUSH PRN (08:42)
[2022-09-03 09:32] LABS: CORONAVIRUS COVID-19 NAA NEGATIVE (NEGATIVE)
[2022-09-03 10:23] LABS: INFLUENZA A NAA NEGATIVE (NEGATIVE); INFLUENZA B NAA NEGATIVE (NEGATIVE); RESPIRATORY SYNCYTIAL VIR NAA NEGATIVE (NEGATIVE)
== END 2022-09-03 13:20 | disposition home or self-care (01) ==
LOC: MW.ED 08:30
DX: R07.89 Other chest pain (principal); I10 Essential (primary) hypertension; K21.9 Gastro-esophageal reflux disease without esophagitis; E66.9 Obesity, unspecified; Z68.32 Body mass index [BMI] 32.0-32.9, adult; Z79.82 Long term (current) use of aspirin; Z79.899 Other long term (current) drug therapy; Z20.822 Contact with and (suspected) exposure to COVID-19
CPT/HCPCS: 0241U; 36415; 71045; 71100; 83880; 84484; 85025; 93005; 99283; J3490

== ENCOUNTER 2022-09-19 10:12 | Emergency (ER) | payer SELFPAY ==
[2022-09-19] MEDS ORDERED: Sodium Chloride 0.9% 1,000 ML IV ONE (10:42)
[2022-09-19] MEDS ORDERED: Sodium Chloride 0.9% 2.5 ML Syringe FLUSH PRN (10:42)
[2022-09-19] MEDS ORDERED: Ketorolac 30 MG/ML SDV IVPUSH ONE (10:42)
[2022-09-19] MEDS ORDERED: Ondansetron 4 MG/2 ML SDV IVPUSH ONE (10:42)
[2022-09-19] MEDS ORDERED: Sodium Chloride 0.9% 10 ML Syringe FLUSH PRN (10:42)
[2022-09-19] MEDS ORDERED: Albuterol/Ipratropium 3.0-0.5 MG/3 ML Neb Soln NEB ONE (10:45)
[2022-09-19 11:48] LABS: CARBON DIOXIDE,CO2 24.9 mmol/L (21.0-32.0); POTASSIUM,K 4.2 mmol/L (3.5-5.1)
[2022-09-19 11:53] LABS: CORONAVIRUS COVID-19 NAA NEGATIVE (NEGATIVE); INFLUENZA A NAA NEGATIVE (NEGATIVE); INFLUENZA B NAA NEGATIVE (NEGATIVE)
[2022-09-19] MEDS ORDERED: Amoxicillin 500 MG Cap PO ONE (12:02)
[2022-09-19] MEDS ORDERED: Doxycycline 100 MG Cap PO STA ×2 (12:04→12:08)
== END 2022-09-19 12:30 | disposition home or self-care (01) ==
LOC: MW.ED 10:12
DX: J18.9 Pneumonia, unspecified organism (principal); I10 Essential (primary) hypertension; E66.9 Obesity, unspecified; Z68.31 Body mass index [BMI] 31.0-31.9, adult; Z87.891 Personal history of nicotine dependence; Z79.82 Long term (current) use of aspirin; Z79.899 Other long term (current) drug therapy; Z20.822 Contact with and (suspected) exposure to COVID-19
CPT/HCPCS: 0240U; 36415; 71046; 80053; 83735; 85025; 96361; 96374; 96375; 99285; A9270; J1885; J2405; J7030; J7620-GY

== ENCOUNTER 2022-10-11 19:11 | Inpatient (IN) | payer SELFPAY ==
[2022-10-11] MEDS ORDERED: Albuterol/Ipratropium 3.0-0.5 MG/3 ML Neb Soln NEB ONE (19:24)
[2022-10-11] MEDS ORDERED: Sodium Chloride 0.9% 1,000 ML IV ONE (19:24)
[2022-10-11] MEDS ORDERED: Furosemide 20 MG/2 ML VIAL IVPUSH ONE (19:37)
[2022-10-11] MEDS ORDERED: Furosemide 40 MG/4 ML VIAL IVPUSH ONE (19:40)
[2022-10-11 20:22] LABS: CARBON DIOXIDE,CO2 27.5 mmol/L (21.0-32.0); POTASSIUM,K 4.1 mmol/L (3.5-5.1)
[2022-10-11] MEDS ORDERED: Iopamidol 755 MG/ML 500 ML Multipack Bottle IVPUSH STA (21:17)
[2022-10-11 21:30] LABS: CORONAVIRUS COVID-19 NAA NEGATIVE (NEGATIVE); INFLUENZA A NAA NEGATIVE (NEGATIVE); INFLUENZA B NAA NEGATIVE (NEGATIVE)
[2022-10-11] MEDS ORDERED: Morphine 4 MG/ML Syringe IVPUSH ONE (23:01)
[2022-10-12] MEDS ORDERED: Lisinopril 10 MG Tab PO ONE (00:30)
[2022-10-12 06:33] LABS: CARBON DIOXIDE,CO2 27.8 mmol/L (21.0-32.0)
[2022-10-12] MEDS ORDERED: Albuterol/Ipratropium 3.0-0.5 MG/3 ML Neb Soln NEB PRN (08:20)
[2022-10-12] MEDS ORDERED: Ondansetron 4 MG/2 ML SDV IVPUSH PRN (08:20)
[2022-10-12] MEDS ORDERED: Docusate Sodium 100 MG Cap PO PRN (08:20)
[2022-10-12] MEDS ORDERED: Sodium Chloride 0.9% 2.5 ML Syringe FLUSH PRN (08:23)
[2022-10-12] MEDS ORDERED: Sodium Chloride 0.9% 10 ML Syringe FLUSH PRN (08:23)
[2022-10-12] MEDS ORDERED: Lisinopril 10 MG Tab PO SCH (09:00)
[2022-10-12] MEDS: Spironolactone 25 MG Tab PO SCH (09:46)
[2022-10-12] MEDS: Furosemide 40 MG/4 ML VIAL IVPUSH SCH ×2 (09:47→21:53)
[2022-10-12 10:27] LABS: HEMOGLOBIN A1C 5.7 %
[2022-10-12] MEDS: Empagliflozin 10 MG Tab PO SCH (10:38)
[2022-10-12] MEDS: Heparin Sodium 5,000 Units/ML Vial SUBCUT SCH ×2 (11:45→21:53)
[2022-10-12] MEDS ORDERED: Magnesium Sulfate/Water 2 GM in Premix Bag 1 BAG IV ONE (12:14)
[2022-10-13] MEDS: Acetaminophen 325 MG Tab PO PRN (00:01)
[2022-10-13] MEDS: Pantoprazole 40 MG Tab.CR PO SCH ×2 (06:04→07:48)
[2022-10-13 06:34] LABS: CARBON DIOXIDE,CO2 29.6 mmol/L (21.0-32.0); POTASSIUM,K 4.2 mmol/L (3.5-5.1)
[2022-10-13] MEDS ORDERED: Alum Hydro/Mag Hydro/Simeth XS 15 ML, Lidocaine 2% 5 ML PO ONE ×4 (08:00→08:45)
[2022-10-13] MEDS: Furosemide 40 MG/4 ML VIAL IVPUSH SCH ×2 (08:59→21:50)
[2022-10-13] MEDS: Spironolactone 25 MG Tab PO SCH (09:00)
[2022-10-13] MEDS: Empagliflozin 10 MG Tab PO SCH (09:02)
[2022-10-13] MEDS: Lisinopril 10 MG Tab PO SCH (09:09)
[2022-10-13] MEDS: Heparin Sodium 5,000 Units/ML Vial SUBCUT SCH ×2 (10:43→21:50)
[2022-10-13] MEDS: atorvaSTATin 20 MG Tab PO SCH (21:50)
[2022-10-14] MEDS: Pantoprazole 40 MG Tab.CR PO SCH ×2 (06:11→06:31)
[2022-10-14 08:43] LABS: CARBON DIOXIDE,CO2 26.7 mmol/L (21.0-32.0); POTASSIUM,K 3.9 mmol/L (3.5-5.1)
[2022-10-14] MEDS: Spironolactone 25 MG Tab PO SCH (09:46)
[2022-10-14] MEDS: Lisinopril 10 MG Tab PO SCH (09:47)
[2022-10-14] MEDS: Furosemide 40 MG/4 ML VIAL IVPUSH SCH ×2 (09:48→21:43)
[2022-10-14] MEDS: Heparin Sodium 5,000 Units/ML Vial SUBCUT SCH ×2 (09:48→21:45)
[2022-10-14] MEDS: Empagliflozin 10 MG Tab PO SCH (09:48)
[2022-10-14] MEDS ORDERED: Potassium Chloride 20 MEQ Tab.ER PO ONE (10:16)
[2022-10-14] MEDS ORDERED: Lisinopril 10 MG Tab PO ONE (10:45)
[2022-10-14] MEDS: Carvedilol 3.125 MG Tab PO SCH ×2 (11:58→21:43)
[2022-10-14] MEDS: Acetaminophen 325 MG Tab PO PRN (11:59)
[2022-10-14] MEDS: atorvaSTATin 20 MG Tab PO SCH (21:43)
[2022-10-15] MEDS: Pantoprazole 40 MG Tab.CR PO SCH ×2 (06:15→07:30)
[2022-10-15 09:10] LABS: CARBON DIOXIDE,CO2 31.5 mmol/L (21.0-32.0); POTASSIUM,K 4.9 mmol/L (3.5-5.1)
[2022-10-15] MEDS: Spironolactone 25 MG Tab PO SCH (09:30)
[2022-10-15] MEDS: Lisinopril 10 MG Tab PO SCH (09:31)
[2022-10-15] MEDS: Carvedilol 3.125 MG Tab PO SCH ×2 (09:31→21:49)
[2022-10-15] MEDS: Furosemide 40 MG/4 ML VIAL IVPUSH SCH ×2 (09:32→21:49)
[2022-10-15] MEDS: Empagliflozin 10 MG Tab PO SCH (09:32)
[2022-10-15] MEDS: Heparin Sodium 5,000 Units/ML Vial SUBCUT SCH ×2 (11:38→21:49)
[2022-10-15] MEDS: atorvaSTATin 20 MG Tab PO SCH (21:49)
[2022-10-16] MEDS: Pantoprazole 40 MG Tab.CR PO SCH ×2 (06:27→06:37)
[2022-10-16 07:53] LABS: CARBON DIOXIDE,CO2 29.4 mmol/L (21.0-32.0); POTASSIUM,K 4.3 mmol/L (3.5-5.1)
[2022-10-16] MEDS: Furosemide 40 MG/4 ML VIAL IVPUSH SCH (08:43)
[2022-10-16] MEDS: Lisinopril 10 MG Tab PO SCH (08:43)
[2022-10-16] MEDS: Carvedilol 3.125 MG Tab PO SCH (08:48)
[2022-10-16] MEDS: Empagliflozin 10 MG Tab PO SCH (08:49)
[2022-10-16] MEDS: Spironolactone 25 MG Tab PO SCH (08:50)
[2022-10-16] MEDS: Heparin Sodium 5,000 Units/ML Vial SUBCUT SCH (10:31)
== END 2022-10-16 17:00 | disposition home or self-care (01) | DRG 291 ==
LOC: MW.ED 19:11 → MW.MS 22:26
PROVIDERS: ADMIT Internal Medicine; ATTEND Internal Medicine
DX: I11.0 Hypertensive heart disease with heart failure (principal); I50.23 Acute on chronic systolic (congestive) heart failure; I47.29 Other ventricular tachycardia; K21.9 Gastro-esophageal reflux disease without esophagitis; F41.0 Panic disorder [episodic paroxysmal anxiety]; I25.10 Atherosclerotic heart disease of native coronary artery without angina pectoris; G47.33 Obstructive sleep apnea (adult) (pediatric); R10.9 Unspecified abdominal pain; Z20.822 Contact with and (suspected) exposure to COVID-19; Z90.49 Acquired absence of other specified parts of digestive tract; Z79.82 Long term (current) use of aspirin; Z79.899 Other long term (current) drug therapy; Z87.891 Personal history of nicotine dependence
CPT/HCPCS: 0240U; 36415; 71045; 71045-26; 71275; 71275-26; 74177; 74177-26; 80048; 80053; 80061; 82947; 83036; 83735; 83880; 84443; 84484; 85025; 85379; 85610; 85730; 86140; 87338; 93005; 93010; 93306; 96374; 96375; 99285; 99285-25; A9270-GY; J1644; J1940; J2270; J3475; J7030; J7620-GY; Q9967

== ENCOUNTER 2023-05-14 06:51 | Emergency (ER) | payer BC ==
[2023-05-14] MEDS ORDERED: Ibuprofen 800 MG Tab PO ONE (08:12)
[2023-05-14] MEDS ORDERED: Acetaminophen/HYDROcodone 325-5 MG Tab PO ONE (08:12)
== END 2023-05-14 10:14 | disposition home or self-care (01) ==
LOC: MW.ED 06:51
DX: M25.511 Pain in right shoulder (principal); I10 Essential (primary) hypertension; F17.210 Nicotine dependence, cigarettes, uncomplicated; E66.9 Obesity, unspecified; Z68.30 Body mass index [BMI] 30.0-30.9, adult; Z79.899 Other long term (current) drug therapy; Z79.82 Long term (current) use of aspirin; Z90.49 Acquired absence of other specified parts of digestive tract
CPT/HCPCS: 73030; 99283; A9270